=== PATIENT | female | born 1940 | race Caucasian/White ===

== ENCOUNTER 2019-04-28 07:55 | Inpatient (IN) | payer MEDICARE, BC ==
[~2019-04-28 07:55] MED LIST: Acetaminophen 325 MG Tab PO SCH; Ketorolac 15 MG/ML SDV IVPUSH PRN; Lactated Ringers 1,000 ML IV SCH; Lidocaine 1%/Sod Bicarbonate in NS 8.4% 1 ML Syringe IDERM PRN; Morphine 2 MG/ML Syringe IVPUSH PRN; Naloxone 0.4 MG/ML SDV IVPUSH PRN; Ondansetron 4 MG/2 ML SDV IVPUSH PRN; Pregabalin 25 MG Cap PO SCH; Sodium Chloride 0.9% 10 ML Syringe FLUSH PRN; oxyCODONE ER 10 MG TAB.ER PO SCH
[2019-04-28] MEDS ORDERED: Midazolam 1 MG/ML 2 ML SDV ONE (08:32)
[2019-04-28] MEDS ORDERED: Lidocaine 1% 4 ML ONE (08:32)
[2019-04-28] MEDS ORDERED: Lidocaine 1% 2 ML ONE (08:32)
[2019-04-28] MEDS ORDERED: Propofol 200 MG/20 ML SDV ONE ×3 (08:32→11:12)
[2019-04-28] MEDS ORDERED: Albuterol 0.083% 2.5 MG/3 ML Neb Soln NEB ONE (08:38)
[2019-04-28] MEDS ORDERED: Ondansetron 4 MG/2 ML SDV IVPUSH PRN (08:58)
[2019-04-28] MEDS ORDERED: diphenhydrAMINE 50 MG/ML SDV IVPUSH PRN (08:58)
[2019-04-28] MEDS ORDERED: fentaNYL 100 MCG/2 ML SDV IVPUSH PRN (08:58)
--- NOTE | 2019-04-28 09:08 | PCM.PREANE ---
Preanesthetic Assessment - Procedure Proposed Procedure: Right Total Hip replacement - Anesthesia/Transfusion/Family Hx Anesthesia History: Prior Anesthesia Without Reaction Family History of Anesthesia Reaction: No Transfusion History: No Prior Transfusion(s) Intubation History: Unknown - Review of Systems General: Other ("hacking cough" from recent URI ) Pulmonary: No Symptoms Cardiovascular: No Symptoms Gastrointestinal: No Symptoms Neurological: No Symptoms Other: Reports: None - Physical Assessment NPO Status Date: 04/27/19 NPO Status Time: 19:00 O2 Sat by Pulse Oximetry: 95 Respiratory Rate: 16 Vital Signs: Last Vital Signs Temp 36.9 C 04/28/19 08:05 Pulse 82 04/28/19 08:05 Resp 16 04/28/19 08:05 BP 157/96 H 04/28/19 08:05 Pulse Ox 94 L 04/28/19 08:38 Height: 1.6 m Weight: 78.925 kg ASA Class: 2 Mental Status: Alert & Oriented x3 Airway Class: Mallampati = 1 Dentition: Reports: [place](s) (multiple ) Thyro-Mental Finger Breadths: 3 Mouth Opening Finger Breadths: 5 ROM/Head Extension: Full Lungs: Clear to Auscultation, Normal Respiratory Effort Cardiovascular: Regular Rate, Regular Rhythm - Lab Values: Laboratory Last Values MRSA (PCR) Negative 04/15/19 09:23 Blood Type AB POSITIVE 04/28/19 08:30 - Allergies Allergies/Adverse Reactions: Allergies Allergy/AdvReac Type Severity Reaction Status Date / Time No Known Allergies Allergy Verified 04/25/19 13:35 - Blood Blood Available: Yes Product(s) Available: PRBC - Anesthesia Plan Pre-Op Medication Ordered: None - Acknowledgements Anesthesia Type Planned: Spinal Pt an Appropriate Candidate for the Planned Anesthesia: Yes Alternatives and Risks of Anesthesia Discussed w Pt/Guardian: Yes Pt/Guardian Understands and Agrees with Anesthesia Plan: Yes PreAnesthesia Questionnaire HEENT History: Reports: Epistaxis, Other (See Below) Other HEENT History: mouth ulcer, wears glasses Cardiovascular History: Reports: High Cholesterol, Hypertension Respiratory History: Reports: Other (See Below) Other Respiratory History: cough Gastrointestinal History: Reports: GERD, Hemorrhoids Genitourinary History: Reports: Other (See Below) Other Genitourinary History: urgency 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 Musculoskeletal History: Reports: Arthritis, Osteoporosis Other Musculoskeletal History: right shoulder pain Neurological History: Reports: Other (See Below) Other Neuro History: cervical radicular pain Psychiatric History: Reports: Depression Endocrine/Metabolic History: Reports: None Hematologic History: Reports: None Immunologic History: Reports: None Oncologic (Cancer) History: Reports: Bladder Dermatologic History: Reports: Other (See Below) Other Dermatologic History: actinic keratosis, atypica pigmented skin lesion, common wart, seborrheic keratosis, verruca vulgaris - Past Surgical History Head Surgeries/Procedures: Reports: None HEENT Surgical History: Reports: Cataract Surgery Cardiovascular Surgical History: Reports: None Respiratory Surgical History: Reports: None GI Surgical History: Reports: Colonoscopy Female Surgical History: Reports: Other (See Below) Other Female Surgeries/Procedures: bladder surgery x2, 2 cancerous areas removed Endocrine Surgical History: Reports: None Musculoskeletal Surgical History: Reports: None Oncologic Surgical History: Reports: None Dermatological Surgical History: Reports: None - SUBSTANCE USE Smoking Status *Q: Never Smoker Second Hand Smoke Exposure: No Days Per Week of Alcohol Use: 7 Number of Drinks Per Day: 1 Total Drinks Per Week: 7 Recreational Drug Use History: No - HOME MEDS Home Medications: Home Meds Aspirin [Halfprin] 81 mg PO DAILY 04/25/19 [History] Cholecalciferol (Vitamin D3) [Vitamin D3] 2,000 unit PO DAILY 04/25/19 [History] FLUoxetine [PROzac] 10 mg PO DAILY 04/25/19 [History] Montelukast [Singulair] 10 mg PO DAILY 04/25/19 [History] Multivitamin [Daily Multiple Vitamin] 1 tab PO DAILY 04/25/19 [History] Pantoprazole Sodium 40 mg PO DAILY 04/25/19 [History] Rosuvastatin [Crestor] 10 mg PO DAILY 04/25/19 [History] Ubidecarenone [Coq-10] 100 mg PO DAILY 04/25/19 [History] amLODIPine Besylate [Norvasc] 2.5 mg PO DAILY 04/25/19 [History] - CURRENT (IN HOUSE) MEDS Current Meds: Current Medications Acetaminophen (Tylenol) 975 mg PO NOW AMI Stop: 04/28/19 12:00 Last Admin: 04/28/19 08:35 Dose: 975 mg Aspirin (Ecotrin) 325 mg PO BID AMI Bisacodyl (Dulcolax) 5 mg PO DAILY PRN PRN Reason: Constipation Morphine Sulfate 8 mg/Epinephrine HCl 0.3 mg/Cefuroxime Sodium 750 mg/Ketorolac Tromethamine 30 mg/Sodium Chloride 27.9 ml 0 mg .XX ONETIME ONE Stop: 04/28/19 10:01 Cyclobenzaprine HCl (Flexeril) 10 mg PO BID PRN PRN Reason: Spasms Diphenhydramine HCl (Benadryl) 12.5 mg IVPUSH Q6H PRN PRN Reason: pruritis Docusate Sodium (Colace) 100 mg PO BID [facility] Fentanyl (Sublimaze) 25 mcg IVPUSH Q5M PRN PRN Reason: Pain Lactated Ringer's (Ringers, Lactated) 1,000 mls @ 125 mls/hr IV ASDIRECTED [facility] Stop: 04/28/19 23:00 Last Admin: 04/28/19 08:30 Dose: 125 mls/hr Cefazolin Sodium/Dextrose 2 gm (/ Premix) 50 mls @ 100 mls/hr IV Q8H [facility] Stop: 04/28/19 23:59 Ketorolac Tromethamine (Toradol) 15 mg IVPUSH Q6H PRN PRN Reason: Pain Lidocaine/Sodium Bicarbonate (Buffered Lidocaine 1% In Ns 8.4%) 0.25 ml IDERM ONETIME PRN PRN Reason: Prior to IV Start Stop: 04/28/19 18:00 Last Admin: 04/28/19 08:30 Dose: 0.25 ml Magnesium Hydroxide (Milk Of Magnesia) 30 ml PO BID PRN PRN Reason: Constipation Morphine Sulfate (Morphine) 2 mg IVPUSH Q2H PRN PRN Reason: Breakthrough Pain Naloxone HCl (Narcan) 0.1 mg IVPUSH Q5M PRN PRN Reason: Oversedation Ondansetron HCl (Zofran) 4 mg IVPUSH Q6H PRN PRN Reason: Nausea/Vomiting Ondansetron HCl (Zofran) 4 mg IVPUSH ONETIME PRN PRN Reason: Nausea/Vomiting Oxycodone HCl (Oxycontin) 10 mg PO ONETIME [facility] Stop: 04/28/19 12:00 Last Admin: 04/28/19 08:35 Dose: 10 mg Oxycodone/Acetaminophen (Percocet 325-5 Mg) 1 - 2 tab PO Q4H PRN PRN Reason: Pain Pregabalin (Lyrica) 50 mg PO ONETIME AMI Stop: 04/28/19 12:00 Last Admin: 04/28/19 08:35 Dose: 50 mg Senna (Senna) 8.6 mg PO BID PRN PRN Reason: Constipation Sodium Chloride (Saline Flush) 10 ml FLUSH ASDIRECTED PRN PRN Reason: Keep Vein Open Discontinued Medications Albuterol (Proventil Neb Soln) 2.5 mg NEB ONETIME ONE Stop: 04/28/19 08:39 Last Admin: 04/28/19 08:45 Dose: 2.5 mg Lidocaine HCl (Xylocaine-Mpf 1%) Confirm Administered Dose 2 mls @ as directed .ROUTE .STK-MED ONE Stop: 04/28/19 08:33 Lidocaine HCl (Xylocaine-Mpf 1%) Confirm Administered Dose 4 mls @ as directed .ROUTE .STK-MED ONE Stop: 04/28/19 08:33 Midazolam HCl (Versed 1 Mg/Ml) Confirm Administered Dose 2 mg .ROUTE .STK-MED ONE Stop: 04/28/19 08:33 Propofol (Diprivan 20 Ml) Confirm Administered Dose 200 mg .ROUTE .STK-MED ONE Stop: 04/28/19 08:33
[2019-04-28] MEDS ORDERED: ceFAZolin 1 GM Vial ONE (10:31)
[2019-04-28] MEDS ORDERED: Ondansetron 4 MG/2 ML SDV ONE (10:33)
[2019-04-28] MEDS ORDERED: ePHEDrine/Normal Saline 25 MG/5 ML Syringe ONE (10:44)
[2019-04-28] MEDS ORDERED: Phenylephrine/Normal Saline 100 MCG/ML 10 ML Syringe ONE (10:44)
--- NOTE | 2019-04-28 10:53 | PCM.CONS ---
H&P History of Present Illness - General Date of Service: 04/28/19 Admit Problem/Dx: Admission Diagnosis/Problem Admission Diagnosis/Problem Osteoarthritis of hip Source of Information: Patient, Old Records, Provider, RN Notes Reviewed History Limitations: Reports: No Limitations - History of Present Illness Initial Comments - Free Text/Narative: Lorena Adair is a 79 yo female patient of Dr. Williamson who is post-operative day 0 of right BEATRIS. Hospital medicine was consulted for post-operative medical care of the below listed chronic conditions. At this time she is resting comfortably in bed. Pain is controlled. She denies any chest pain, shortness of breath, palpitations, nausea, or vomiting. She carries a history of: OA, Osteoporosis, GERD, HTN, HLD, Depression, Urinary urgency, osteopenia, cervical radiculopathy , hx/o bladder cancer. She was never a smoker. She is a full code. Her primary care provider is Shannon Holland NP. Right Hip Pain Score (Numeric/FACES): 0 - Related Data Allergies/Adverse Reactions: Allergies Allergy/AdvReac Type Severity Reaction Status Date / Time No Known Allergies Allergy Verified 04/25/19 13:35 Home Medications: Home Meds Aspirin [Halfprin] 81 mg PO DAILY 04/25/19 [History] Cholecalciferol (Vitamin D3) [Vitamin D3] 2,000 unit PO DAILY 04/25/19 [History] FLUoxetine [PROzac] 10 mg PO DAILY 04/25/19 [History] Montelukast [Singulair] 10 mg PO DAILY 04/25/19 [History] Multivitamin [Daily Multiple Vitamin] 1 tab PO DAILY 04/25/19 [History] Pantoprazole Sodium 40 mg PO DAILY 04/25/19 [History] Rosuvastatin [Crestor] 10 mg PO DAILY 04/25/19 [History] Ubidecarenone [Coq-10] 100 mg PO DAILY 04/25/19 [History] amLODIPine Besylate [Norvasc] 2.5 mg PO DAILY 04/25/19 [History] Past Medical History HEENT History: Reports: Epistaxis, Other (See Below) Other HEENT History: mouth ulcer, wears glasses Cardiovascular History: Reports: High Cholesterol, Hypertension Respiratory History: Reports: Other (See Below) Other Respiratory History: cough Gastrointestinal History: Reports: GERD, Hemorrhoids Genitourinary History: Reports: Other (See Below) Other Genitourinary History: urgency 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 Musculoskeletal History: Reports: Arthritis, Osteoporosis Other Musculoskeletal History: right shoulder pain Neurological History: Reports: Other (See Below) Other Neuro History: cervical radicular pain Psychiatric History: Reports: Depression Endocrine/Metabolic History: Reports: None Hematologic History: Reports: None Immunologic History: Reports: None Oncologic (Cancer) History: Reports: Bladder Dermatologic History: Reports: Other (See Below) Other Dermatologic History: actinic keratosis, atypica pigmented skin lesion, common wart, seborrheic keratosis, verruca vulgaris - Past Surgical History Head Surgeries/Procedures: Reports: None HEENT Surgical History: Reports: Cataract Surgery Cardiovascular Surgical History: Reports: None Respiratory Surgical History: Reports: None GI Surgical History: Reports: Colonoscopy Female Surgical History: Reports: Other (See Below) Other Female Surgeries/Procedures: bladder surgery x2, 2 cancerous areas removed Endocrine Surgical History: Reports: None Musculoskeletal Surgical History: Reports: None Oncologic Surgical History: Reports: None Dermatological Surgical History: Reports: None Social & Family History - Tobacco Use Smoking Status *Q: Never Smoker Second Hand Smoke Exposure: No - Alcohol Use Days Per Week of Alcohol Use: 7 Number of Drinks Per Day: 1 Total Drinks Per Week: 7 - Recreational Drug Use Recreational Drug Use: No H&P Review of Systems - Review of Systems: Review Of Systems: See Below General: Reports: No Symptoms. Denies: Fever, Chills HEENT: Reports: No Symptoms. Denies: Headaches, Sore Throat Pulmonary: Reports: No Symptoms. Denies: Shortness of Breath, Wheezing, Cough, Sputum Cardiovascular: Reports: No Symptoms. Denies: Chest Pain, Palpitations, Dyspnea on Exertion Gastrointestinal: Reports: No Symptoms. Denies: Abdominal Pain, Constipation, Diarrhea, Nausea, Vomiting Genitourinary: Reports: No Symptoms. Denies: Pain Musculoskeletal: Reports: Leg Pain Skin: Reports: No Symptoms Psychiatric: Reports: No Symptoms. Denies: Confusion Neurological: Reports: No Symptoms Hematologic/Lymphatic: Reports: No Symptoms Immunologic: Reports: No Symptoms Exam - Exam Exam: See Below - Vital Signs Vital Signs: Last Vital Signs Temp 98.5 F 04/28/19 08:05 Pulse 82 04/28/19 08:05 Resp 16 04/28/19 09:08 BP 157/96 H 04/28/19 08:05 Pulse Ox 95 04/28/19 09:08 Weight: 174 lb - Exam Quality Assessment: Supplemental Oxygen, DVT Prophylaxis General: Alert, Oriented, Cooperative. No: Mild Distress HEENT: Conjunctiva Clear, EACs Clear, EOMI, Hearing Intact, Mucosa Moist & [place] , Normal Nasal Septum, Posterior Pharynx Clear, PERRLA Neck: Supple, Trachea Midline Lungs: Clear to Auscultation, Normal Respiratory Effort Cardiovascular: Regular Rate, Regular Rhythm GI/Abdominal Exam: Normal Bowel Sounds, Soft, Non-Tender, No Organomegaly, No Distention (Female) Exam: Deferred Back Exam: Normal Inspection, Full Range of Motion Extremities: No Pedal Edema, Normal Capillary Refill, Leg Pain, Limited Range of Motion, Other (Bandage in place on right leg. Bandage is dry and intact. Cooling pack in place ) Peripheral Pulses: 2+: Radial (L), Radial (R), Dorsalis Pedis (L), Dorsalis Pedis (R) Skin: Warm, Dry, Intact Neurological: Cranial Nerves Intact (Grossly ) Neuro Extensive - Mental Status: Alert, Oriented x3, Normal Mood/Affect - Patient Data Lab Results Last 24 hrs: Laboratory Results - last 24 hr 04/28/19 Range/Units 08:30 Blood Type AB POSITIVE Gel Antibody Screen Negative Consult PN Assessment/Plan POD#: 0 Procedures: Procedures ASSAY OF CREATININE (04/16/15) ASSAY OF PREALBUMIN (04/09/19) ASSAY THYROID STIM HORMONE (01/24/18) BREAST TOMOSYNTHESIS BI (02/18/19) COMPLETE CBC AUTOMATED (04/09/19) COMPLETE CBC W/AUTO DIFF WBC (08/09/18) COMPREHEN METABOLIC PANEL (04/09/19) DRAIN/INJ JOINT/BURSA W/O US (12/20/18) DXA BONE DENSITY AXIAL (02/15/18) ELECTROCARDIOGRAM TRACING (04/09/19) LIPID PANEL (01/24/18) MRI JNT OF LWR EXTRE W/O DYE (05/16/16) MRI NECK SPINE W/O DYE (04/19/18) OFFICE/OUTPATIENT VISIT EST (04/09/19) OFFICE/OUTPATIENT VISIT EST (04/12/16) PROTHROMBIN TIME (04/09/19) ROUTINE VENIPUNCTURE (04/09/19) SCR MAMMO BI INCL CAD (02/18/19) THROMBOPLASTIN TIME PARTIAL (04/09/19) URINALYSIS AUTO W/O SCOPE (12/08/16) URINALYSIS AUTO W/SCOPE (08/09/18) URINE CULTURE/COLONY COUNT (08/09/18) X-RAY EXAM CHEST 2 VIEWS (04/09/19) X-RAY EXAM OF KNEE 3 (04/12/16) (1) S/P total hip arthroplasty SNOMED Code(s): 217773871358, 166751277911 Code(s): Z96.649 - PRESENCE OF UNSPECIFIED ARTIFICIAL HIP JOINT Priority: High Current Visit: Yes Qualifiers: Laterality: right Qualified Code(s): Z96.641 - Presence of right artificial hip joint (2) Osteoporosis SNOMED Code(s): 04869776 Code(s): M81.0 - AGE-RELATED OSTEOPOROSIS W/O CURRENT PATHOLOGICAL FRACTURE Priority: High Current Visit: Yes Qualifiers: Osteoporosis type: unspecified Encounter type: initial encounter (3) Osteoarthritis SNOMED Code(s): 016965919 Code(s): M19.90 - UNSPECIFIED OSTEOARTHRITIS, UNSPECIFIED SITE Priority: High Current Visit: Yes Qualifiers: Osteoarthritis location: hip Osteoarthritis type: primary Laterality: right Qualified Code(s): M16.11 - Unilateral primary osteoarthritis, right hip (4) Cervical radiculopathy SNOMED Code(s): 87113689 Code(s): M54.12 - RADICULOPATHY, CERVICAL REGION Priority: Low Current Visit: No (5) GERD (gastroesophageal reflux disease) SNOMED Code(s): 620462480 Code(s): K21.9 - GASTRO-ESOPHAGEAL REFLUX DISEASE WITHOUT ESOPHAGITIS Priority: Low Current Visit: No Qualifiers: Esophagitis presence: esophagitis presence not specified Qualified Code(s) : K21.9 - Gastro-esophageal reflux disease without esophagitis (6) HTN (hypertension) SNOMED Code(s): 07578599 Code(s): I10 - ESSENTIAL (PRIMARY) HYPERTENSION Priority: Medium Current Visit: No Qualifiers: Hypertension type: unspecified Qualified Code(s): I10 - Essential (primary ) hypertension (7) HLD (hyperlipidemia) SNOMED Code(s): 18930681 Code(s): E78.5 - HYPERLIPIDEMIA, UNSPECIFIED Priority: Low Current Visit : No Qualifiers: Hyperlipidemia type: unspecified Qualified Code(s): E78.5 - Hyperlipidemia , unspecified (8) Depression SNOMED Code(s): 47019395 Code(s): F32.9 - MAJOR DEPRESSIVE DISORDER, SINGLE EPISODE, UNSPECIFIED Priority: Low Current Visit: No Qualifiers: Depression Type: other depression Qualified Code(s): F32.89 - Other specified depressive episodes (9) Urinary urgency Priority: Medium Current Visit: No (10) Osteopenia SNOMED Code(s): 253564963 Code(s): M85.80 - OTH DISRD OF BONE DENSITY AND STRUCTURE, UNSPECIFIED SITE Priority: Medium Current Visit: No Qualifiers: Osteopenia location: unspecified Qualified Code(s): M85.80 - Other specified disorders of bone density and structure, unspecified site (11) History of bladder cancer SNOMED Code(s): 539463692, 380277973 Code(s): Z85.51 - PERSONAL HISTORY OF MALIGNANT NEOPLASM OF BLADDER Priority: Medium Current Visit: No Problem List Initiated/Reviewed/Updated: Yes Plan: I/P: Acute: S/P right total hip arthroplasty - post-operative day 0 -DVT prophylaxis and pain management per primary care team -PT/OT -IS/RT -Monitor oxygen saturation -Titrate oxygen as needed -Home medications reviewed -Vital signs stable -Monitor labs -Pre-operative Hgb was 13.4 -Pre-operative GFR was 53 -Pre-operative sodium was 135 Osteoarthritis of right hip -Pain management per primary care team Chronic: OA Osteoporosis GERD HTN HLD Depression Urinary urgency osteopenia cervical radiculopathy Hx/o bladder cancer Plan: CM for discharge planning GI prophylaxis Home medications as indicated Other orders as listed above Routine AM labs She is a full code. Her PCP is Dr. Shannon Holland, [facility]. Thank you for allowing us to participate in the care of this patient!! Requesting Provider: Dr. Williamson Date Consult Requested: 04/28/19 Patient History Reviewed: Yes Admission H&P Reviewed: Yes Time Spent (in minutes): 35
[2019-04-28] MEDS: Iodine/Sodium Iodide 2% Tincture 30 ML Bottle ONE ×2 (11:24→11:35)
[2019-04-28] MEDS: Bupivacaine 0.25% 30 ML SDV ONE ×2 (11:25→11:44)
[2019-04-28] MEDS: ceFAZolin 1 GM Vial ONE ×2 (11:25→11:38)
[2019-04-28] MEDS: Morphine 8 MG, EPINEPHrine 0.3 MG, Cefuroxime 750 MG, Ketorolac 30 MG, Sodium Chloride ... ONE ×15 (11:26→14:17)
[2019-04-28] MEDS: Vancomycin 1 GM SDV ONE ×2 (11:27→11:45)
[2019-04-28] MEDS ORDERED: Lactated Ringers 0 ML ONE ×2 (11:48)
--- NOTE | 2019-04-28 13:29 | PCM.POSTAN ---
POST ANESTHESIA ASSESSMENT - MENTAL STATUS Mental Status: Alert, Oriented - VITAL SIGNS Pulse Rate: 88 SaO2: 92 Resp Rate: 17 Blood Pressure: 101/64 Temperature: 36.8 C - RESPIRATORY Respiratory Status: Respiratory Rate WNL, Airway Patent, O2 Saturation Stable, Supplemental Oxygen - CARDIOVASCULAR CV Status: Pulse Rate WNL, Blood Pressure Stable - GASTROINTESTINAL GI Status: No Symptoms - PAIN Pain Score: 0 - POST OP HYDRATION Hydration Status: Adequate & Stable
[2019-04-28] MEDS ORDERED: Lidocaine 1% 6 ML ONE (13:39)
[2019-04-28] MEDS ORDERED: Lactated Ringers 1,000 ML ONE ×2 (14:00→14:01)
[2019-04-28] MEDS: Montelukast 10 MG Tab PO SCH (14:23)
[2019-04-28] MEDS: FLUoxetine 10 MG Cap PO SCH (14:24)
[2019-04-28] MEDS: Pantoprazole 40 MG Tab.CR PO SCH (14:24)
--- NOTE | 2019-04-28 15:10 | CR ---
Pelvis and right hip: AP view of pelvis was obtained as well as lateral view of the right hip. Comparison: No prior pelvis or hip exam. Degenerative change is seen within the visualized lower lumbar spine. Right hip prosthesis is seen. Soft tissue air is seen around the right hip compatible with recent surgery. No acute fracture or other abnormality is seen. Impression: 1. Recently placed right hip prosthesis which appears within normal limits. 2. Degenerative change within the spine. Diagnostic code #2
--- NOTE | 2019-04-28 16:53 | PCM.OPNOTE ---
- General Post-Op/Procedure Note Date of Surgery/Procedure: 04/28/19 Operative Procedure(s): right total hip arthroplasty Pre Op Diagnosis: right hip osteoarthrosis Post-Op Diagnosis: Same Anesthesia Technique: Local, MAC, Spinal Primary Surgeon: Axel Williamson Anesthesia Provider: Nyla Shah Enrollment Counselor: Juhi Li Enrollment Counselor: Vane Powell EBL in mLs: 1,000 Complications: None Condition: Good Free Text/Narrative:: Intake & Output 04/28/19 04/28/19 04/28/19 06:59 14:59 22:59 Intake Total 150 Balance 150 size 52 cup 36 flat liner size 6 stem 0 36mm head
[2019-04-28] MEDS: ceFAZolin 2 GM in Premix Bag 1 BAG IV SCH (18:26)
[2019-04-28] MEDS: amLODIPine 2.5 MG Tab PO SCH (20:39)
[2019-04-28] MEDS: Acetaminophen/oxyCODONE 325-5 MG Tab PO PRN (20:40)
[2019-04-28] MEDS: Docusate Sodium 100 MG Cap PO SCH (20:40)
[2019-04-28] MEDS ORDERED: Sennosides 8.6 MG Tab PO PRN (21:00)
[2019-04-28] MEDS ORDERED: Cyclobenzaprine 10 MG Tab PO PRN (21:00)
[2019-04-28] MEDS ORDERED: Magnesium Hydroxide 400 MG/5 ML Susp 30 ML Cup PO PRN (21:00)
[2019-04-29] MEDS: ceFAZolin 2 GM in Premix Bag 1 BAG IV SCH ×2 (01:16→09:53)
[2019-04-29] MEDS: Acetaminophen/oxyCODONE 325-5 MG Tab PO PRN ×5 (01:17→20:41)
[2019-04-29] MEDS: Pantoprazole 40 MG Tab.CR PO SCH (05:42)
--- NOTE | 2019-04-29 06:30 | PCM.CONSN ---
- General Info Date of Service: 04/29/19 Admission Dx/Problem (Free Text): Admission Diagnosis/Problem Admission Diagnosis/Problem Osteoarthritis of hip Functional Status: Reports: Pain Controlled, Tolerating Diet, Ambulating, Urinating, Incentive Spirometry. Denies: New Symptoms - Review of Systems General: Reports: No Symptoms. Denies: Fever, Malaise HEENT: Reports: No Symptoms. Denies: Headaches, Sore Throat Pulmonary: Reports: No Symptoms. Denies: Shortness of Breath, Pleuritic Chest Pain, Cough, Sputum, Wheezing Cardiovascular: Reports: No Symptoms. Denies: Chest Pain, Palpitations, Edema Gastrointestinal: Reports: No Symptoms. Denies: Abdominal Pain, Constipation, Diarrhea, Nausea, Vomiting Genitourinary: Reports: No Symptoms. Denies: Pain Musculoskeletal: Reports: Leg Pain Skin: Reports: No Symptoms. Denies: Cyanosis Neurological: Reports: No Symptoms. Denies: Confusion, Dizziness (earlier in day but resolved now. ) Psychiatric: Reports: No Symptoms - Patient Data Vitals - Most Recent: Last Vital Signs Temp 97.9 F 04/29/19 04:05 Pulse 82 04/29/19 04:05 Resp 16 04/29/19 04:05 BP 109/56 L 04/29/19 04:05 Pulse Ox 95 04/29/19 04:05 Weight - Most Recent: 180 lb 4.8 oz I&O - Last 24 Hours: Intake & Output 04/28/19 04/28/19 04/29/19 14:59 22:59 06:59 Intake Total 150 1520 500 Output Total 0 400 Balance 150 1520 100 Lab Results Last 24 Hours: Laboratory Results - last 24 hr 04/28/19 04/28/19 04/29/19 Range/Units 06:00 08:30 05:15 WBC 5.25 (3.98-10.04) K/mm3 RBC 3.10 L (3.98-5.22) M/mm3 Hgb 10.8 L D 9.4 L (11.2-15.7) gm/L Hct 33.8 L 29.9 L (34.1-44.9) % MCV 96.5 H D (79.4-94.8) fl MCH 30.3 (25.6-32.2) pg MCHC 31.4 L (32.2-35.5) g/dl RDW Std Deviation 42.7 (36.4-46.3) fL Plt Count 165 L D (182-369) K/mm3 MPV 10.4 (9.4-12.3) fl Blood Type AB POSITIVE Gel Antibody Screen Negative Med Orders - Current: Current Medications Amlodipine Besylate (Norvasc) 2.5 mg PO BEDTIME [facility] Last Admin: 04/28/19 20:39 Dose: 2.5 mg Aspirin (Ecotrin) 325 mg PO BID [facility] Bisacodyl (Dulcolax) 5 mg PO DAILY PRN PRN Reason: Constipation Cholecalciferol (Vitamin D3) 2,000 units PO DAILY [facility] Cyclobenzaprine HCl (Flexeril) 10 mg PO BID PRN PRN Reason: Spasms Docusate Sodium (Colace) 100 mg PO BID [facility] Last Admin: 04/28/19 20:40 Dose: 100 mg Fluoxetine HCl (Prozac) 10 mg PO DAILY [facility] Last Admin: 04/28/19 14:24 Dose: 10 mg Cefazolin Sodium/Dextrose 2 gm (/ Premix) 50 mls @ 100 mls/hr IV Q8H [facility] Stop: 04/29/19 10:29 Last Admin: 04/29/19 01:16 Dose: 100 mls/hr Ketorolac Tromethamine (Toradol) 15 mg IVPUSH Q6H PRN PRN Reason: Pain Magnesium Hydroxide (Milk Of Magnesia) 30 ml PO BID PRN PRN Reason: Constipation Montelukast Sodium (Singulair) 10 mg PO DAILY [facility] Last Admin: 04/28/19 14:23 Dose: 10 mg Morphine Sulfate (Morphine) 2 mg IVPUSH Q2H PRN PRN Reason: Breakthrough Pain Multivitamins (Thera) 1 each PO DAILY [facility] Naloxone HCl (Narcan) 0.1 mg IVPUSH Q5M PRN PRN Reason: Oversedation Ondansetron HCl (Zofran) 4 mg IVPUSH Q6H PRN PRN Reason: Nausea/Vomiting Oxycodone/Acetaminophen (Percocet 325-5 Mg) 1 - 2 tab PO Q4H PRN PRN Reason: Pain Last Admin: 04/29/19 05:42 Dose: 2 tab Pantoprazole Sodium (Protonix) 40 mg PO ACBREAKFAST [facility] Last Admin: 04/29/19 05:42 Dose: 40 mg Senna (Senna) 8.6 mg PO BID PRN PRN Reason: Constipation Sodium Chloride (Saline Flush) 10 ml FLUSH ASDIRECTED PRN PRN Reason: Keep Vein Open Discontinued Medications Acetaminophen (Tylenol) 975 mg PO NOW AMI Stop: 04/28/19 12:00 Last Admin: 04/28/19 08:35 Dose: 975 mg Albuterol (Proventil Neb Soln) 2.5 mg NEB ONETIME ONE Stop: 04/28/19 08:39 Last Admin: 04/28/19 08:45 Dose: 2.5 mg Aspirin (Halfprin) 81 mg PO DAILY [facility] Bupivacaine HCl (Marcaine 0.25%) Confirm Administered Dose 30 ml .ROUTE .STK- MED ONE Stop: 04/28/19 09:04 Last Admin: 04/28/19 11:44 Dose: 30 ml Cefazolin Sodium (Ancef) Confirm Administered Dose 2 gm .ROUTE .STK-MED ONE Stop: 04/28/19 09:56 Last Admin: 04/28/19 11:38 Dose: 2 gm Cefazolin Sodium (Ancef) Confirm Administered Dose 2 gm .ROUTE .STK-MED ONE Stop: 04/28/19 10:32 Morphine Sulfate 8 mg/Epinephrine HCl 0.3 mg/Cefuroxime Sodium 750 mg/Ketorolac Tromethamine 30 mg/Sodium Chloride 27.9 ml 0 mg .XX ONETIME ONE Stop: 04/28/19 10:01 Last Admin: 04/28/19 14:17 Dose: Not Given Diphenhydramine HCl (Benadryl) 12.5 mg IVPUSH Q6H PRN PRN Reason: pruritis Stop: 04/28/19 12:00 Ephedrine Sulfate (Ephedrine In Ns) Confirm Administered Dose 25 mg .ROUTE .STK- MED ONE Stop: 04/28/19 10:45 Fentanyl (Sublimaze) 25 mcg IVPUSH Q5M PRN PRN Reason: Pain Stop: 04/28/19 12:00 Lactated Ringer's (Ringers, Lactated) 1,000 mls @ 125 mls/hr IV ASDIRECTED AMI Stop: 04/28/19 23:00 Last Admin: 04/28/19 08:30 Dose: 125 mls/hr Lidocaine HCl (Xylocaine-Mpf 1%) Confirm Administered Dose 2 mls @ as directed .ROUTE .ST-MED ONE Stop: 04/28/19 08:33 Lidocaine HCl (Xylocaine-Mpf 1%) Confirm Administered Dose 4 mls @ as directed .ROUTE .ST-MED ONE Stop: 04/28/19 08:33 Lactated Ringer's (Ringers, Lactated) Confirm Administered Dose 0 mls @ as directed .ROUTE .ST-MED ONE Stop: 04/28/19 11:49 Lactated Ringer's (Ringers, Lactated) Confirm Administered Dose 0 mls @ as directed .ROUTE .ST-MED ONE Stop: 04/28/19 11:49 Lidocaine HCl (Xylocaine-Mpf 1%) Confirm Administered Dose 6 mls @ as directed .ROUTE .[facility] ONE Stop: 04/28/19 13:40 Lactated Ringer's (Ringers, Lactated) Confirm Administered Dose 1,000 mls @ as directed .ROUTE .[facility]-MED ONE Stop: 04/28/19 14:01 Lactated Ringer's (Ringers, Lactated) Confirm Administered Dose 1,000 mls @ as directed .ROUTE .[facility]-MED ONE Stop: 04/28/19 14:02 Iodine (Iodine 2% Mild Tincture) Confirm Administered Dose 30 ml .ROUTE .ST- MED ONE Stop: 04/28/19 09:04 Last Admin: 04/28/19 11:35 Dose: 18 ml Lidocaine/Sodium Bicarbonate (Buffered Lidocaine 1% In Ns 8.4%) 0.25 ml IDERM ONETIME PRN PRN Reason: Prior to IV Start Stop: 04/28/19 18:00 Last Admin: 04/28/19 08:30 Dose: 0.25 ml Midazolam HCl (Versed 1 Mg/Ml) Confirm Administered Dose 2 mg .ROUTE .ST-MED ONE Stop: 04/28/19 08:33 Ondansetron HCl (Zofran) 4 mg IVPUSH ONETIME PRN PRN Reason: Nausea/Vomiting Stop: 04/28/19 12:00 Ondansetron HCl (Zofran) Confirm Administered Dose 4 mg .ROUTE .ST-MED ONE Stop: 04/28/19 10:34 Oxycodone HCl (Oxycontin) 10 mg PO ONETIME AMI Stop: 04/28/19 12:00 Last Admin: 04/28/19 08:35 Dose: 10 mg Phenylephrine HCl (Phenylephrine In Ns 100 Mcg/Ml) Confirm Administered Dose 1 mg .ROUTE .STK-MED ONE Stop: 04/28/19 10:45 Pregabalin (Lyrica) 50 mg PO ONETIME AMI Stop: 04/28/19 12:00 Last Admin: 04/28/19 08:35 Dose: 50 mg Propofol (Diprivan 20 Ml) Confirm Administered Dose 200 mg .ROUTE .STK-MED ONE Stop: 04/28/19 08:33 Propofol (Diprivan 20 Ml) Confirm Administered Dose 200 mg .ROUTE .STK-MED ONE Stop: 04/28/19 10:46 Propofol (Diprivan 20 Ml) Confirm Administered Dose 200 mg .ROUTE .STK-MED ONE Stop: 04/28/19 11:13 Tranexamic Acid (Cyklokapron) Confirm Administered Dose 1,000 mg .ROUTE .STK- MED ONE Stop: 04/28/19 09:04 Last Admin: 04/28/19 11:45 Dose: 1,000 mg Vancomycin HCl (Vancomycin) Confirm Administered Dose 1 gm .ROUTE .STK-MED ONE Stop: 04/28/19 09:04 Last Admin: 04/28/19 11:45 Dose: 1 gm - Exam Quality Assessment: Supplemental Oxygen, DVT Prophylaxis General: Alert, Oriented, Cooperative, No Acute Distress HEENT: Pupils Equal, Pupils Reactive, EOMI, Mucous Membr. Moist/[place] Neck: Supple Lungs: Clear to Auscultation, Normal Respiratory Effort Cardiovascular: Regular Rate, Regular Rhythm GI/Abdominal Exam: Normal Bowel Sounds, Soft, Non-Tender, No Organomegaly, No Distention (Female) Exam: Deferred Back Exam: Normal Inspection, Full Range of Motion Extremities: No Pedal Edema, Normal Capillary Refill, Leg Pain, Limited Range of Motion, Other (Bandage in place on right leg. Cooling pack in place. ) Peripheral Pulses: 2+: Radial (L), Radial (R), Dorsalis Pedis (L), Dorsalis Pedis (R) Skin: Warm, Dry, Intact Wound/Incisions: Dressing Dry and Intact, No Drainage Neurological: No New Focal Deficit Psy/Mental Status: Alert, Normal Affect, Normal Mood Consult PN Assessment/Plan POD#: 1 Procedures: Procedures ASSAY OF CREATININE (04/16/15) ASSAY OF PREALBUMIN (04/09/19) ASSAY THYROID STIM HORMONE (01/24/18) BREAST TOMOSYNTHESIS BI (02/18/19) COMPLETE CBC AUTOMATED (04/09/19) COMPLETE CBC W/AUTO DIFF WBC (08/09/18) COMPREHEN METABOLIC PANEL (04/09/19) DRAIN/INJ JOINT/BURSA W/O US (12/20/18) DXA BONE DENSITY AXIAL (02/15/18) ELECTROCARDIOGRAM TRACING (04/09/19) LIPID PANEL (01/24/18) MRI JNT OF LWR EXTRE W/O DYE (05/16/16) MRI NECK SPINE W/O DYE (04/19/18) OFFICE/OUTPATIENT VISIT EST (04/09/19) OFFICE/OUTPATIENT VISIT EST (04/12/16) PROTHROMBIN TIME (04/09/19) ROUTINE VENIPUNCTURE (04/09/19) SCR MAMMO BI INCL CAD (02/18/19) THROMBOPLASTIN TIME PARTIAL (04/09/19) URINALYSIS AUTO W/O SCOPE (12/08/16) URINALYSIS AUTO W/SCOPE (08/09/18) URINE CULTURE/COLONY COUNT (08/09/18) X-RAY EXAM CHEST 2 VIEWS (04/09/19) X-RAY EXAM OF KNEE 3 (04/12/16) (1) S/P total hip arthroplasty SNOMED Code(s): 434524481193, 108979296656 Code(s): Z96.649 - PRESENCE OF UNSPECIFIED ARTIFICIAL HIP JOINT Priority: High Current Visit: Yes Qualifiers: Laterality: right Qualified Code(s): Z96.641 - Presence of right artificial hip joint (2) Osteoporosis SNOMED Code(s): 23506038 Code(s): M81.0 - AGE-RELATED OSTEOPOROSIS W/O CURRENT PATHOLOGICAL FRACTURE Priority: High Current Visit: Yes Qualifiers: Osteoporosis type: unspecified Encounter type: initial encounter (3) Osteoarthritis SNOMED Code(s): 780124057 Code(s): M19.90 - UNSPECIFIED OSTEOARTHRITIS, UNSPECIFIED SITE Priority: High Current Visit: Yes Qualifiers: Osteoarthritis location: hip Osteoarthritis type: primary Laterality: right Qualified Code(s): M16.11 - Unilateral primary osteoarthritis, right hip (4) Cervical radiculopathy SNOMED Code(s): 60520980 Code(s): M54.12 - RADICULOPATHY, CERVICAL REGION Priority: Low Current Visit: No (5) GERD (gastroesophageal reflux disease) SNOMED Code(s): 470271921 Code(s): K21.9 - GASTRO-ESOPHAGEAL REFLUX DISEASE WITHOUT ESOPHAGITIS Priority: Low Current Visit: No Qualifiers: Esophagitis presence: esophagitis presence not specified Qualified Code(s) : K21.9 - Gastro-esophageal reflux disease without esophagitis (6) HTN (hypertension) SNOMED Code(s): 31842723 Code(s): I10 - ESSENTIAL (PRIMARY) HYPERTENSION Priority: Medium Current Visit: No Qualifiers: Hypertension type: unspecified Qualified Code(s): I10 - Essential (primary ) hypertension (7) HLD (hyperlipidemia) SNOMED Code(s): 02279502 Code(s): E78.5 - HYPERLIPIDEMIA, UNSPECIFIED Priority: Low Current Visit : No Qualifiers: Hyperlipidemia type: unspecified Qualified Code(s): E78.5 - Hyperlipidemia , unspecified (8) Depression SNOMED Code(s): 54837169 Code(s): F32.9 - MAJOR DEPRESSIVE DISORDER, SINGLE EPISODE, UNSPECIFIED Priority: Low Current Visit: No Qualifiers: Depression Type: other depression Qualified Code(s): F32.89 - Other specified depressive episodes (9) Urinary urgency Priority: Medium Current Visit: No (10) Osteopenia SNOMED Code(s): 858429045 Code(s): M85.80 - OTH DISRD OF BONE DENSITY AND STRUCTURE, UNSPECIFIED SITE Priority: Medium Current Visit: No Qualifiers: Osteopenia location: unspecified Qualified Code(s): M85.80 - Other specified disorders of bone density and structure, unspecified site (11) History of bladder cancer SNOMED Code(s): 525900280, 948558463 Code(s): Z85.51 - PERSONAL HISTORY OF MALIGNANT NEOPLASM OF BLADDER Priority: Medium Current Visit: No Problem List Initiated/Reviewed/Updated: Yes My Orders Last 24 Hours: My Active Orders 04/28/19 13:30 FLUoxetine [PROzac] 10 mg PO DAILY Montelukast [Singulair] 10 mg PO DAILY Pantoprazole [ProTONIX] 40 mg PO ACBREAKFAST 04/28/19 21:00 amLODIPine [Norvasc] 2.5 mg PO BEDTIME 04/29/19 09:00 Cholecalciferol (Vitamin D3) [Vitamin D3] 2,000 units PO DAILY Multivitamins,Therapeutic [Thera] 1 each PO DAILY Plan: I/P: Acute: S/P right total hip arthroplasty - post-operative day 1 -DVT prophylaxis and pain management per primary care team -PT/OT -IS/RT -Monitor oxygen saturation -Titrate oxygen as needed -Home medications reviewed -Vital signs stable -Monitor labs -Pre-operative Hgb was 13.4; Now 10.8-->9.4 -Pre-operative GFR was 53; Now 48 -Pre-operative sodium was 135; Now 139 Osteoarthritis of right hip -Pain management per primary care team Post-operative hypoxia -Saturations drop into 70's while sleeping off O2 with good pleth -Likely 2/2 pain medications and poor inspiration -RT/IS -Lung sounds clear, denies SOB -May need to be qualified for O2 in AM -Continue to monitor and attempt to wean Chronic: OA Osteoporosis GERD HTN HLD Depression Urinary urgency osteopenia cervical radiculopathy Hx/o bladder cancer Plan: CM for discharge planning GI prophylaxis Home medications as indicated Other orders as listed above Routine AM labs She is a full code. Her PCP is Dr. Shannon Holland, [employer]. Lorena continues to do ok. Unfortunately her oxygen saturations have remained low today, especially while sleeping. We will continue to attempt to wean tonight but she likely will not be able to discharge until morning. Otherwise she has been working with therapies and ambulating well. She has urinated and had good oral intake. No nursing or patient concerns. Thank you for allowing us to participate in the care of this patient!!
--- NOTE | 2019-04-29 07:46 | PCM48HPAN ---
Post Anesthesia Note - EVALUATION WITHIN 48HRS OF ANESTHETIC Vital Signs in Normal Range: Yes Patient Participated in Evaluation: Yes Respiratory Function Stable: Yes Airway Patent: Yes Cardiovascular Function Stable: Yes Hydration Status Stable: Yes Pain Control Satisfactory: Yes Nausea and Vomiting Control Satisfactory: Yes Mental Status Recovered: Yes
--- NOTE | 2019-04-29 07:53 | PCM.SURGPN ---
- General Info Date of Service: 04/29/19 POD#: 1 Functional Status: Reports: Pain Controlled, Tolerating Diet, Ambulating, Urinating, Incentive Spirometry, Other (The pt states she has no pain. She reports feeling dizzy earlier today and that has improved "drinking my coffee".) - Patient Data Vitals - Most Recent: Last Vital Signs Temp 97.9 F 04/29/19 04:05 Pulse 82 04/29/19 04:05 Resp 16 04/29/19 04:05 BP 109/56 L 04/29/19 04:05 Pulse Ox 95 04/29/19 04:05 Weight - Most Recent: 180 lb 4.8 oz I&O - Last 24 Hours: Intake & Output 04/28/19 04/29/19 04/29/19 22:59 06:59 14:59 Intake Total 1520 500 Output Total 0 400 Balance 1520 100 Lab Results Last 24 Hrs: Laboratory Results - last 24 hr 04/28/19 04/28/19 04/29/19 Range/Units 06:00 08:30 05:15 WBC 5.25 (3.98-10.04) K/mm3 RBC 3.10 L (3.98-5.22) M/mm3 Hgb 10.8 L D 9.4 L (11.2-15.7) gm/L Hct 33.8 L 29.9 L (34.1-44.9) % MCV 96.5 H D (79.4-94.8) fl MCH 30.3 (25.6-32.2) pg MCHC 31.4 L (32.2-35.5) g/dl RDW Std Deviation 42.7 (36.4-46.3) fL Plt Count 165 L D (182-369) K/mm3 MPV 10.4 (9.4-12.3) fl Sodium (136-145) mEq/L Potassium (3.5-5.1) mEq/L Chloride (98-107) mEq/L Carbon Dioxide (21-32) mEq/L Anion Gap (5-15) BUN (7-18) mg/dL Creatinine (0.55-1.02) mg/dL Est Cr Clr Drug Dosing mL/min Estimated GFR (MDRD) (>60) mL/min BUN/Creatinine Ratio (14-18) Glucose (83-115) mg/dL Calcium (8.5-10.1) mg/dL Total Bilirubin (0.2-1.0) mg/dL AST (15-37) U/L ALT (14-59) U/L Alkaline Phosphatase (46-116) U/L Total Protein (6.4-8.2) g/dl Albumin (3.4-5.0) g/dl Globulin gm/dL Albumin/Globulin Ratio (1-2) Blood Type AB POSITIVE Gel Antibody Screen Negative 04/29/19 Range/Units 05:15 WBC (3.98-10.04) K/mm3 RBC (3.98-5.22) M/mm3 Hgb (11.2-15.7) gm/L Hct (34.1-44.9) % MCV (79.4-94.8) fl MCH (25.6-32.2) pg MCHC (32.2-35.5) g/dl RDW Std Deviation (36.4-46.3) fL Plt Count (182-369) K/mm3 MPV (9.4-12.3) fl Sodium 139 (136-145) mEq/L Potassium 4.0 (3.5-5.1) mEq/L Chloride 103 (98-107) mEq/L Carbon Dioxide 29 (21-32) mEq/L Anion Gap 11.0 (5-15) BUN 17 (7-18) mg/dL Creatinine 1.1 H (0.55-1.02) mg/dL Est Cr Clr Drug Dosing 33.18 mL/min Estimated GFR (MDRD) 48 (>60) mL/min BUN/Creatinine Ratio 15.5 (14-18) Glucose 97 (83-115) mg/dL Calcium 8.4 L (8.5-10.1) mg/dL Total Bilirubin 0.5 (0.2-1.0) mg/dL AST 33 (15-37) U/L ALT 22 (14-59) U/L Alkaline Phosphatase 67 (46-116) U/L Total Protein 5.6 L (6.4-8.2) g/dl Albumin 2.9 L (3.4-5.0) g/dl Globulin 2.7 gm/dL Albumin/Globulin Ratio 1.1 (1-2) Blood Type Gel Antibody Screen Med Orders - Current: Current Medications Amlodipine Besylate (Norvasc) 2.5 mg PO BEDTIME [facility] Last Admin: 04/28/19 20:39 Dose: 2.5 mg Aspirin (Ecotrin) 325 mg PO BID [facility] Bisacodyl (Dulcolax) 5 mg PO DAILY PRN PRN Reason: Constipation Cholecalciferol (Vitamin D3) 2,000 units PO DAILY [facility] Cyclobenzaprine HCl (Flexeril) 10 mg PO BID PRN PRN Reason: Spasms Docusate Sodium (Colace) 100 mg PO BID [facility] Last Admin: 04/28/19 20:40 Dose: 100 mg Fluoxetine HCl (Prozac) 10 mg PO DAILY [facility] Last Admin: 04/28/19 14:24 Dose: 10 mg Cefazolin Sodium/Dextrose 2 gm (/ Premix) 50 mls @ 100 mls/hr IV Q8H [facility] Stop: 04/29/19 10:29 Last Admin: 04/29/19 01:16 Dose: 100 mls/hr Ketorolac Tromethamine (Toradol) 15 mg IVPUSH Q6H PRN PRN Reason: Pain Magnesium Hydroxide (Milk Of Magnesia) 30 ml PO BID PRN PRN Reason: Constipation Montelukast Sodium (Singulair) 10 mg PO DAILY [facility] Last Admin: 04/28/19 14:23 Dose: 10 mg Morphine Sulfate (Morphine) 2 mg IVPUSH Q2H PRN PRN Reason: Breakthrough Pain Multivitamins (Thera) 1 each PO DAILY [facility] Naloxone HCl (Narcan) 0.1 mg IVPUSH Q5M PRN PRN Reason: Oversedation Ondansetron HCl (Zofran) 4 mg IVPUSH Q6H PRN PRN Reason: Nausea/Vomiting Oxycodone/Acetaminophen (Percocet 325-5 Mg) 1 - 2 tab PO Q4H PRN PRN Reason: Pain Last Admin: 04/29/19 05:42 Dose: 2 tab Pantoprazole Sodium (Protonix) 40 mg PO ACBREAKFAST [facility] Last Admin: 04/29/19 05:42 Dose: 40 mg Senna (Senna) 8.6 mg PO BID PRN PRN Reason: Constipation Sodium Chloride (Saline Flush) 10 ml FLUSH ASDIRECTED PRN PRN Reason: Keep Vein Open Discontinued Medications Acetaminophen (Tylenol) 975 mg PO NOW [facility] Stop: 04/28/19 12:00 Last Admin: 04/28/19 08:35 Dose: 975 mg Albuterol (Proventil Neb Soln) 2.5 mg NEB ONETIME ONE Stop: 04/28/19 08:39 Last Admin: 04/28/19 08:45 Dose: 2.5 mg Aspirin (Halfprin) 81 mg PO DAILY [facility] Bupivacaine HCl (Marcaine 0.25%) Confirm Administered Dose 30 ml .ROUTE .STK- MED ONE Stop: 04/28/19 09:04 Last Admin: 04/28/19 11:44 Dose: 30 ml Cefazolin Sodium (Ancef) Confirm Administered Dose 2 gm .ROUTE .STK-MED ONE Stop: 04/28/19 09:56 Last Admin: 04/28/19 11:38 Dose: 2 gm Cefazolin Sodium (Ancef) Confirm Administered Dose 2 gm .ROUTE .STK-MED ONE Stop: 04/28/19 10:32 Morphine Sulfate 8 mg/Epinephrine HCl 0.3 mg/Cefuroxime Sodium 750 mg/Ketorolac Tromethamine 30 mg/Sodium Chloride 27.9 ml 0 mg .XX ONETIME ONE Stop: 04/28/19 10:01 Last Admin: 04/28/19 14:17 Dose: Not Given Diphenhydramine HCl (Benadryl) 12.5 mg IVPUSH Q6H PRN PRN Reason: pruritis Stop: 04/28/19 12:00 Ephedrine Sulfate (Ephedrine In Ns) Confirm Administered Dose 25 mg .ROUTE .STK- MED ONE Stop: 04/28/19 10:45 Fentanyl (Sublimaze) 25 mcg IVPUSH Q5M PRN PRN Reason: Pain Stop: 04/28/19 12:00 Lactated Ringer's (Ringers, Lactated) 1,000 mls @ 125 mls/hr IV ASDIRECTED [facility] Stop: 04/28/19 23:00 Last Admin: 04/28/19 08:30 Dose: 125 mls/hr Lidocaine HCl (Xylocaine-Mpf 1%) Confirm Administered Dose 2 mls @ as directed .ROUTE .STK-MED ONE Stop: 04/28/19 08:33 Lidocaine HCl (Xylocaine-Mpf 1%) Confirm Administered Dose 4 mls @ as directed .ROUTE .STK-MED ONE Stop: 04/28/19 08:33 Lactated Ringer's (Ringers, Lactated) Confirm Administered Dose 0 mls @ as directed .ROUTE .[facility] ONE Stop: 04/28/19 11:49 Lactated Ringer's (Ringers, Lactated) Confirm Administered Dose 0 mls @ as directed .ROUTE .[facility] ONE Stop: 04/28/19 11:49 Lidocaine HCl (Xylocaine-Mpf 1%) Confirm Administered Dose 6 mls @ as directed .ROUTE .[facility] ONE Stop: 04/28/19 13:40 Lactated Ringer's (Ringers, Lactated) Confirm Administered Dose 1,000 mls @ as directed .ROUTE .[facility] ONE Stop: 04/28/19 14:01 Lactated Ringer's (Ringers, Lactated) Confirm Administered Dose 1,000 mls @ as directed .ROUTE .[facility] ONE Stop: 04/28/19 14:02 Iodine (Iodine 2% Mild Tincture) Confirm Administered Dose 30 ml .ROUTE .[facility] ONE Stop: 04/28/19 09:04 Last Admin: 04/28/19 11:35 Dose: 18 ml Lidocaine/Sodium Bicarbonate (Buffered Lidocaine 1% In Ns 8.4%) 0.25 ml IDERM ONETIME PRN PRN Reason: Prior to IV Start Stop: 04/28/19 18:00 Last Admin: 04/28/19 08:30 Dose: 0.25 ml Midazolam HCl (Versed 1 Mg/Ml) Confirm Administered Dose 2 mg .ROUTE .[facility] ONE Stop: 04/28/19 08:33 Ondansetron HCl (Zofran) 4 mg IVPUSH ONETIME PRN PRN Reason: Nausea/Vomiting Stop: 04/28/19 12:00 Ondansetron HCl (Zofran) Confirm Administered Dose 4 mg .ROUTE .[facility] ONE Stop: 04/28/19 10:34 Oxycodone HCl (Oxycontin) 10 mg PO ONETIME [facility] Stop: 04/28/19 12:00 Last Admin: 04/28/19 08:35 Dose: 10 mg Phenylephrine HCl (Phenylephrine In Ns 100 Mcg/Ml) Confirm Administered Dose 1 mg .ROUTE .[facility] ONE Stop: 04/28/19 10:45 Pregabalin (Lyrica) 50 mg PO ONETIME [facility] Stop: 04/28/19 12:00 Last Admin: 04/28/19 08:35 Dose: 50 mg Propofol (Diprivan 20 Ml) Confirm Administered Dose 200 mg .ROUTE .STK-MED ONE Stop: 04/28/19 08:33 Propofol (Diprivan 20 Ml) Confirm Administered Dose 200 mg .ROUTE .STK-MED ONE Stop: 04/28/19 10:46 Propofol (Diprivan 20 Ml) Confirm Administered Dose 200 mg .ROUTE .STK-MED ONE Stop: 04/28/19 11:13 Tranexamic Acid (Cyklokapron) Confirm Administered Dose 1,000 mg .ROUTE .STK- MED ONE Stop: 04/28/19 09:04 Last Admin: 04/28/19 11:45 Dose: 1,000 mg Vancomycin HCl (Vancomycin) Confirm Administered Dose 1 gm .ROUTE .STK-MED ONE Stop: 04/28/19 09:04 Last Admin: 04/28/19 11:45 Dose: 1 gm - Exam Wound/Incisions: Dressing Dry and Intact General: Alert, Cooperative, No Acute Distress Lungs: Normal Respiratory Effort Extremities: Other (NVS intact for BLE. Kate's negative. Right thigh soft.) - Problem List Review Problem List Initiated/Reviewed/Updated: Yes - My Orders Last 24 Hours: Active Orders 24 hr Category Date Time Status Communication Order [RC] ASDIRECTED Care 04/29/19 07:50 Ordered Cooling Warming Measures [RC] ASDIRECTED Care 04/28/19 08:58 Inactive Notify Provider [RC] ASDIRECTED Care 04/28/19 08:58 Active Ready for Discharge [RC] PER UNIT ROUTINE Care 04/29/19 07:50 Ordered Regular Diet [DIET] Diet 04/28/19 Lunch Active Acetaminophen/oxyCODONE [Percocet 325-5 MG] Med 04/28/19 07:25 Active 1 - 2 tab PO Q4H PRN Aspirin [Ecotrin] Med 04/29/19 09:00 Active 325 mg PO BID Bisacodyl [Dulcolax] Med 04/29/19 09:00 Active 5 mg PO DAILY PRN Cholecalciferol (Vitamin D3) [Vitamin D3] Med 04/29/19 09:00 Active 2,000 units PO DAILY Cyclobenzaprine [Flexeril] Med 04/28/19 21:00 Active 10 mg PO BID PRN Docusate Sodium [Colace] Med 04/28/19 21:00 Active 100 mg PO BID FLUoxetine [PROzac] Med 04/28/19 13:30 Active 10 mg PO DAILY Ketorolac [Toradol] Med 04/28/19 07:25 Active 15 mg IVPUSH Q6H PRN Magnesium Hydroxide [Milk of Magnesia] Med 04/28/19 21:00 Active 30 ml PO BID PRN Montelukast [Singulair] Med 04/28/19 13:30 Active 10 mg PO DAILY Multivitamins,Therapeutic [Thera] Med 04/29/19 09:00 Active 1 each PO DAILY Pantoprazole [ProTONIX] Med 04/28/19 13:30 Active 40 mg PO ACBREAKFAST Sennosides [Senna] Med 04/28/19 21:00 Active 8.6 mg PO BID PRN Sodium Chloride 0.9% [Saline Flush] Med 04/28/19 07:00 Active 10 ml FLUSH ASDIRECTED PRN amLODIPine [Norvasc] Med 04/28/19 21:00 Active 2.5 mg PO BEDTIME ceFAZolin [Ancef] 2 gm Med 04/28/19 18:00 Active Premix Bag 1 bag IV Q8H Medication Administration Instruction [OM.PC] Routine Oth 04/28/19 07:00 Ordered Medication Orders Amlodipine Besylate (Norvasc) 2.5 mg PO BEDTIME [facility] Last Admin: 04/28/19 20:39 Dose: 2.5 mg Aspirin (Ecotrin) 325 mg PO BID [facility] Bisacodyl (Dulcolax) 5 mg PO DAILY PRN PRN Reason: Constipation Cholecalciferol (Vitamin D3) 2,000 units PO DAILY [facility] Cyclobenzaprine HCl (Flexeril) 10 mg PO BID PRN PRN Reason: Spasms Docusate Sodium (Colace) 100 mg PO BID [facility] Last Admin: 04/28/19 20:40 Dose: 100 mg Fluoxetine HCl (Prozac) 10 mg PO DAILY [facility] Last Admin: 04/28/19 14:24 Dose: 10 mg Cefazolin Sodium/Dextrose 2 gm (/ Premix) 50 mls @ 100 mls/hr IV Q8H [facility] Stop: 04/29/19 10:29 Last Admin: 04/29/19 01:16 Dose: 100 mls/hr Infusion: 04/28/19 18:56 Dose: 100 mls/hr Admin: 04/28/19 18:26 Dose: 100 mls/hr Ketorolac Tromethamine (Toradol) 15 mg IVPUSH Q6H PRN PRN Reason: Pain Magnesium Hydroxide (Milk Of Magnesia) 30 ml PO BID PRN PRN Reason: Constipation Montelukast Sodium (Singulair) 10 mg PO DAILY [facility] Last Admin: 04/28/19 14:23 Dose: 10 mg Morphine Sulfate (Morphine) 2 mg IVPUSH Q2H PRN PRN Reason: Breakthrough Pain Multivitamins (Thera) 1 each PO DAILY [facility] Naloxone HCl (Narcan) 0.1 mg IVPUSH Q5M PRN PRN Reason: Oversedation Ondansetron HCl (Zofran) 4 mg IVPUSH Q6H PRN PRN Reason: Nausea/Vomiting Oxycodone/Acetaminophen (Percocet 325-5 Mg) 1 - 2 tab PO Q4H PRN PRN Reason: Pain Last Admin: 04/29/19 05:42 Dose: 2 tab Admin: 04/29/19 01:17 Dose: 2 tab Admin: 04/28/19 20:40 Dose: 2 tab Pantoprazole Sodium (Protonix) 40 mg PO ACBREAKFAST [facility] Last Admin: 04/29/19 05:42 Dose: 40 mg Admin: 04/28/19 14:24 Dose: 40 mg Senna (Senna) 8.6 mg PO BID PRN PRN Reason: Constipation Sodium Chloride (Saline Flush) 10 ml FLUSH ASDIRECTED PRN PRN Reason: Keep Vein Open - Assessment Assessment (Free Text/Narrative):: POD#1 - right BEATRIS - Plan Plan (Free Text/Narrative):: 1. Hgb 9.4 today. 2. 325mg ASA PO BID. Frequent mobility, TEDs. 3. Outpatient therapy. 4. Will d/c to home today if inpt therapy goals met and if cleared by Hospitalist service. The pt's case was discussed with Dr. Williamson.
[2019-04-29] MEDS ORDERED: Bisacodyl 5 MG Tab PO PRN (09:00)
[2019-04-29] MEDS ORDERED: Aspirin 81 MG Tab.EC PO SCH (09:00)
[2019-04-29] MEDS: Cholecalciferol (Vitamin D3) 1,000 Unit Tab PO SCH (09:53)
[2019-04-29] MEDS: Docusate Sodium 100 MG Cap PO SCH ×2 (09:53→20:41)
[2019-04-29] MEDS: Montelukast 10 MG Tab PO SCH (09:54)
[2019-04-29] MEDS: FLUoxetine 10 MG Cap PO SCH (09:54)
[2019-04-29] MEDS: Multivitamins,Therapeutic Tab PO SCH (09:54)
[2019-04-29] MEDS: Aspirin 325 MG Tab.EC PO SCH ×2 (09:54→20:41)
[2019-04-29] MEDS: amLODIPine 2.5 MG Tab PO SCH (20:41)
[2019-04-30] MEDS: Pantoprazole 40 MG Tab.CR PO SCH (05:46)
[2019-04-30] MEDS: Acetaminophen/oxyCODONE 325-5 MG Tab PO PRN (05:46)
--- NOTE | 2019-04-30 06:28 | PCM.CONSN ---
- General Info Date of Service: 04/30/19 Admission Dx/Problem (Free Text): Admission Diagnosis/Problem Admission Diagnosis/Problem Osteoarthritis of hip Functional Status: Reports: Pain Controlled, Tolerating Diet, Ambulating, Urinating, Incentive Spirometry. Denies: New Symptoms - Review of Systems General: Reports: No Symptoms. Denies: Fever, Weakness, Fatigue, Chills HEENT: Reports: No Symptoms. Denies: Headaches, Sore Throat Pulmonary: Reports: No Symptoms. Denies: Shortness of Breath, Cough, Sputum, Wheezing Cardiovascular: Reports: No Symptoms. Denies: Chest Pain, Palpitations, Edema Gastrointestinal: Reports: No Symptoms. Denies: Abdominal Pain, Constipation, Diarrhea, Nausea, Vomiting Genitourinary: Reports: No Symptoms. Denies: Pain Musculoskeletal: Reports: Leg Pain Skin: Reports: No Symptoms. Denies: Cyanosis Neurological: Reports: No Symptoms. Denies: Confusion, Pre-Existing Deficit Psychiatric: Reports: No Symptoms - Patient Data Vitals - Most Recent: Last Vital Signs Temp 97.9 F 04/30/19 05:45 Pulse 99 04/30/19 05:45 Resp 18 04/30/19 05:45 BP 119/63 04/30/19 05:45 Pulse Ox 94 L 04/30/19 05:45 Weight - Most Recent: 182 lb 5 oz I&O - Last 24 Hours: Intake & Output 04/29/19 04/29/19 04/30/19 14:59 22:59 06:59 Intake Total 1130 400 Output Total 800 700 Balance 330 -300 Lab Results Last 24 Hours: Laboratory Results - last 24 hr 04/29/19 04/30/19 Range/Units 05:15 05:52 WBC 6.18 (3.98-10.04) K/mm3 RBC 3.02 L (3.98-5.22) M/mm3 Hgb 9.2 L (11.2-15.7) gm/L Hct 29.0 L (34.1-44.9) % MCV 96.0 H (79.4-94.8) fl MCH 30.5 (25.6-32.2) pg MCHC 31.7 L (32.2-35.5) g/dl RDW Std Deviation 41.9 (36.4-46.3) fL Plt Count 158 L (182-369) K/mm3 MPV 10.5 (9.4-12.3) fl Neut % (Auto) 73.6 H (34.0-71.1) % Lymph % (Auto) 16.3 L (19.3-51.7) % [place] % (Auto) 7.8 (4.7-12.5) % Eos % (Auto) 1.9 (0.7-5.8) Baso % (Auto) 0.2 (0.1-1.2) % Neut # (Auto) 4.55 (1.56-6.13) K/mm3 Lymph # (Auto) 1.01 L (1.18-3.74) K/mm3 [place] # (Auto) 0.48 H (0.24-0.36) K/mm3 Eos # (Auto) 0.12 (0.04-0.36) K/mm3 Baso # (Auto) 0.01 (0.01-0.08) K/mm3 Sodium 139 (136-145) mEq/L Potassium 4.0 (3.5-5.1) mEq/L Chloride 103 (98-107) mEq/L Carbon Dioxide 29 (21-32) mEq/L Anion Gap 11.0 (5-15) BUN 17 (7-18) mg/dL Creatinine 1.1 H (0.55-1.02) mg/dL Est Cr Clr Drug Dosing 33.18 mL/min Estimated GFR (MDRD) 48 (>60) mL/min BUN/Creatinine Ratio 15.5 (14-18) Glucose 97 (83-115) mg/dL Calcium 8.4 L (8.5-10.1) mg/dL Total Bilirubin 0.5 (0.2-1.0) mg/dL AST 33 (15-37) U/L ALT 22 (14-59) U/L Alkaline Phosphatase 67 (46-116) U/L Total Protein 5.6 L (6.4-8.2) g/dl Albumin 2.9 L (3.4-5.0) g/dl Globulin 2.7 gm/dL Albumin/Globulin Ratio 1.1 (1-2) Med Orders - Current: Current Medications Amlodipine Besylate (Norvasc) 2.5 mg PO BEDTIME AMI Last Admin: 04/29/19 20:41 Dose: 2.5 mg Aspirin (Ecotrin) 325 mg PO BID [facility] Last Admin: 04/29/19 20:41 Dose: 325 mg Bisacodyl (Dulcolax) 5 mg PO DAILY PRN PRN Reason: Constipation Cholecalciferol (Vitamin D3) 2,000 units PO DAILY [facility] Last Admin: 04/29/19 09:53 Dose: 2,000 units Cyclobenzaprine HCl (Flexeril) 10 mg PO BID PRN PRN Reason: Spasms Docusate Sodium (Colace) 100 mg PO BID [facility] Last Admin: 04/29/19 20:41 Dose: 100 mg Fluoxetine HCl (Prozac) 10 mg PO DAILY [facility] Last Admin: 04/29/19 09:54 Dose: 10 mg Ketorolac Tromethamine (Toradol) 15 mg IVPUSH Q6H PRN PRN Reason: Pain Magnesium Hydroxide (Milk Of Magnesia) 30 ml PO BID PRN PRN Reason: Constipation Montelukast Sodium (Singulair) 10 mg PO DAILY [facility] Last Admin: 04/29/19 09:54 Dose: 10 mg Morphine Sulfate (Morphine) 2 mg IVPUSH Q2H PRN PRN Reason: Breakthrough Pain Multivitamins (Thera) 1 each PO DAILY [facility] Last Admin: 04/29/19 09:54 Dose: 1 each Naloxone HCl (Narcan) 0.1 mg IVPUSH Q5M PRN PRN Reason: Oversedation Ondansetron HCl (Zofran) 4 mg IVPUSH Q6H PRN PRN Reason: Nausea/Vomiting Oxycodone/Acetaminophen (Percocet 325-5 Mg) 1 - 2 tab PO Q4H PRN PRN Reason: Pain Last Admin: 04/30/19 05:46 Dose: 2 tab Pantoprazole Sodium (Protonix) 40 mg PO ACBREAKFAST [facility] Last Admin: 04/30/19 05:46 Dose: 40 mg Senna (Senna) 8.6 mg PO BID PRN PRN Reason: Constipation Sodium Chloride (Saline Flush) 10 ml FLUSH ASDIRECTED PRN PRN Reason: Keep Vein Open Discontinued Medications Acetaminophen (Tylenol) 975 mg PO NOW [facility] Stop: 04/28/19 12:00 Last Admin: 04/28/19 08:35 Dose: 975 mg Albuterol (Proventil Neb Soln) 2.5 mg NEB ONETIME ONE Stop: 04/28/19 08:39 Last Admin: 04/28/19 08:45 Dose: 2.5 mg Aspirin (Halfprin) 81 mg PO DAILY [facility] Bupivacaine HCl (Marcaine 0.25%) Confirm Administered Dose 30 ml .ROUTE .STK- MED ONE Stop: 04/28/19 09:04 Last Admin: 04/28/19 11:44 Dose: 30 ml Cefazolin Sodium (Ancef) Confirm Administered Dose 2 gm .ROUTE .STK-MED ONE Stop: 04/28/19 09:56 Last Admin: 04/28/19 11:38 Dose: 2 gm Cefazolin Sodium (Ancef) Confirm Administered Dose 2 gm .ROUTE .STK-MED ONE Stop: 04/28/19 10:32 Morphine Sulfate 8 mg/Epinephrine HCl 0.3 mg/Cefuroxime Sodium 750 mg/Ketorolac Tromethamine 30 mg/Sodium Chloride 27.9 ml 0 mg .XX ONETIME ONE Stop: 04/28/19 10:01 Last Admin: 04/28/19 14:17 Dose: Not Given Diphenhydramine HCl (Benadryl) 12.5 mg IVPUSH Q6H PRN PRN Reason: pruritis Stop: 04/28/19 12:00 Ephedrine Sulfate (Ephedrine In Ns) Confirm Administered Dose 25 mg .ROUTE .STK- MED ONE Stop: 04/28/19 10:45 Fentanyl (Sublimaze) 25 mcg IVPUSH Q5M PRN PRN Reason: Pain Stop: 04/28/19 12:00 Lactated Ringer's (Ringers, Lactated) 1,000 mls @ 125 mls/hr IV ASDIRECTED [facility] Stop: 04/28/19 23:00 Last Admin: 04/28/19 08:30 Dose: 125 mls/hr Cefazolin Sodium/Dextrose 2 gm (/ Premix) 50 mls @ 100 mls/hr IV Q8H [facility] Stop: 04/29/19 10:29 Last Admin: 04/29/19 09:53 Dose: 100 mls/hr Lidocaine HCl (Xylocaine-Mpf 1%) Confirm Administered Dose 2 mls @ as directed .ROUTE .STK-MED ONE Stop: 04/28/19 08:33 Lidocaine HCl (Xylocaine-Mpf 1%) Confirm Administered Dose 4 mls @ as directed .ROUTE .STK-MED ONE Stop: 04/28/19 08:33 Lactated Ringer's (Ringers, Lactated) Confirm Administered Dose 0 mls @ as directed .ROUTE .STK-MED ONE Stop: 04/28/19 11:49 Lactated Ringer's (Ringers, Lactated) Confirm Administered Dose 0 mls @ as directed .ROUTE .STK-MED ONE Stop: 04/28/19 11:49 Lidocaine HCl (Xylocaine-Mpf 1%) Confirm Administered Dose 6 mls @ as directed .ROUTE .STK-MED ONE Stop: 04/28/19 13:40 Lactated Ringer's (Ringers, Lactated) Confirm Administered Dose 1,000 mls @ as directed .ROUTE .STK-MED ONE Stop: 04/28/19 14:01 Lactated Ringer's (Ringers, Lactated) Confirm Administered Dose 1,000 mls @ as directed .ROUTE .ST-MED ONE Stop: 04/28/19 14:02 Iodine (Iodine 2% Mild Tincture) Confirm Administered Dose 30 ml .ROUTE .STK- MED ONE Stop: 04/28/19 09:04 Last Admin: 04/28/19 11:35 Dose: 18 ml Lidocaine/Sodium Bicarbonate (Buffered Lidocaine 1% In Ns 8.4%) 0.25 ml IDERM ONETIME PRN PRN Reason: Prior to IV Start Stop: 04/28/19 18:00 Last Admin: 04/28/19 08:30 Dose: 0.25 ml Midazolam HCl (Versed 1 Mg/Ml) Confirm Administered Dose 2 mg .ROUTE .STK-MED ONE Stop: 04/28/19 08:33 Ondansetron HCl (Zofran) 4 mg IVPUSH ONETIME PRN PRN Reason: Nausea/Vomiting Stop: 04/28/19 12:00 Ondansetron HCl (Zofran) Confirm Administered Dose 4 mg .ROUTE .STK-MED ONE Stop: 04/28/19 10:34 Oxycodone HCl (Oxycontin) 10 mg PO ONETIME AMI Stop: 04/28/19 12:00 Last Admin: 04/28/19 08:35 Dose: 10 mg Phenylephrine HCl (Phenylephrine In Ns 100 Mcg/Ml) Confirm Administered Dose 1 mg .ROUTE .STK-MED ONE Stop: 04/28/19 10:45 Pregabalin (Lyrica) 50 mg PO ONETIME AMI Stop: 04/28/19 12:00 Last Admin: 04/28/19 08:35 Dose: 50 mg Propofol (Diprivan 20 Ml) Confirm Administered Dose 200 mg .ROUTE .STK-MED ONE Stop: 04/28/19 08:33 Propofol (Diprivan 20 Ml) Confirm Administered Dose 200 mg .ROUTE .STK-MED ONE Stop: 04/28/19 10:46 Propofol (Diprivan 20 Ml) Confirm Administered Dose 200 mg .ROUTE .STK-MED ONE Stop: 04/28/19 11:13 Tranexamic Acid (Cyklokapron) Confirm Administered Dose 1,000 mg .ROUTE .STK- MED ONE Stop: 04/28/19 09:04 Last Admin: 04/28/19 11:45 Dose: 1,000 mg Vancomycin HCl (Vancomycin) Confirm Administered Dose 1 gm .ROUTE .STK-MED ONE Stop: 04/28/19 09:04 Last Admin: 04/28/19 11:45 Dose: 1 gm - Exam Quality Assessment: Supplemental Oxygen, DVT Prophylaxis General: Alert, Oriented, Cooperative, No Acute Distress HEENT: Pupils Equal, Pupils Reactive, EOMI, Mucous Membr. Moist/[place] Neck: Supple, Trachea Midline Lungs: Clear to Auscultation, Normal Respiratory Effort Cardiovascular: Regular Rate, Regular Rhythm GI/Abdominal Exam: Normal Bowel Sounds, Soft, Non-Tender, No Distention, No Abnormal Bruit (Female) Exam: Deferred Back Exam: Normal Inspection, Full Range of Motion Extremities: No Pedal Edema, Normal Capillary Refill, Leg Pain, Limited Range of Motion, Other (Bandage in place on right side. Cooling pack in place. ) Peripheral Pulses: 2+: Radial (L), Radial (R), Dorsalis Pedis (L), Dorsalis Pedis (R) Skin: Warm, Dry, Intact Wound/Incisions: Dressing Dry and Intact, No Drainage Neurological: No New Focal Deficit Psy/Mental Status: Alert, Normal Affect, Normal Mood Consult PN Assessment/Plan POD#: 2 () Procedures: Procedures ASSAY OF CREATININE (04/16/15) ASSAY OF PREALBUMIN (04/09/19) ASSAY THYROID STIM HORMONE (01/24/18) BREAST TOMOSYNTHESIS BI (02/18/19) COMPLETE CBC AUTOMATED (04/09/19) COMPLETE CBC W/AUTO DIFF WBC (08/09/18) COMPREHEN METABOLIC PANEL (04/09/19) DRAIN/INJ JOINT/BURSA W/O US (12/20/18) DXA BONE DENSITY AXIAL (02/15/18) ELECTROCARDIOGRAM TRACING (04/09/19) LIPID PANEL (01/24/18) MRI JNT OF LWR EXTRE W/O DYE (05/16/16) MRI NECK SPINE W/O DYE (04/19/18) OFFICE/OUTPATIENT VISIT EST (04/09/19) OFFICE/OUTPATIENT VISIT EST (04/12/16) PROTHROMBIN TIME (04/09/19) ROUTINE VENIPUNCTURE (04/09/19) SCR MAMMO BI INCL CAD (02/18/19) THROMBOPLASTIN TIME PARTIAL (04/09/19) URINALYSIS AUTO W/O SCOPE (12/08/16) URINALYSIS AUTO W/SCOPE (08/09/18) URINE CULTURE/COLONY COUNT (08/09/18) X-RAY EXAM CHEST 2 VIEWS (04/09/19) X-RAY EXAM OF KNEE 3 (04/12/16) (1) S/P total hip arthroplasty SNOMED Code(s): 616931228297, 901340344059 Code(s): Z96.649 - PRESENCE OF UNSPECIFIED ARTIFICIAL HIP JOINT Priority: High Current Visit: Yes Qualifiers: Laterality: right Qualified Code(s): Z96.641 - Presence of right artificial hip joint (2) Osteoporosis SNOMED Code(s): 54843917 Code(s): M81.0 - AGE-RELATED OSTEOPOROSIS W/O CURRENT PATHOLOGICAL FRACTURE Priority: High Current Visit: Yes Qualifiers: Osteoporosis type: unspecified Encounter type: initial encounter (3) Osteoarthritis SNOMED Code(s): 708584412 Code(s): M19.90 - UNSPECIFIED OSTEOARTHRITIS, UNSPECIFIED SITE Priority: High Current Visit: Yes Qualifiers: Osteoarthritis location: hip Osteoarthritis type: primary Laterality: right Qualified Code(s): M16.11 - Unilateral primary osteoarthritis, right hip (4) Cervical radiculopathy SNOMED Code(s): 05568595 Code(s): M54.12 - RADICULOPATHY, CERVICAL REGION Priority: Low Current Visit: No (5) GERD (gastroesophageal reflux disease) SNOMED Code(s): 562953582 Code(s): K21.9 - GASTRO-ESOPHAGEAL REFLUX DISEASE WITHOUT ESOPHAGITIS Priority: Low Current Visit: No Qualifiers: Esophagitis presence: esophagitis presence not specified Qualified Code(s) : K21.9 - Gastro-esophageal reflux disease without esophagitis (6) HTN (hypertension) SNOMED Code(s): 58543486 Code(s): I10 - ESSENTIAL (PRIMARY) HYPERTENSION Priority: Medium Current Visit: No Qualifiers: Hypertension type: unspecified Qualified Code(s): I10 - Essential (primary ) hypertension (7) HLD (hyperlipidemia) SNOMED Code(s): 52910528 Code(s): E78.5 - HYPERLIPIDEMIA, UNSPECIFIED Priority: Low Current Visit : No Qualifiers: Hyperlipidemia type: unspecified Qualified Code(s): E78.5 - Hyperlipidemia , unspecified (8) Depression SNOMED Code(s): 32106716 Code(s): F32.9 - MAJOR DEPRESSIVE DISORDER, SINGLE EPISODE, UNSPECIFIED Priority: Low Current Visit: No Qualifiers: Depression Type: other depression Qualified Code(s): F32.89 - Other specified depressive episodes (9) Urinary urgency Priority: Medium Current Visit: No (10) Osteopenia SNOMED Code(s): 017486720 Code(s): M85.80 - OTH DISRD OF BONE DENSITY AND STRUCTURE, UNSPECIFIED SITE Priority: Medium Current Visit: No Qualifiers: Osteopenia location: unspecified Qualified Code(s): M85.80 - Other specified disorders of bone density and structure, unspecified site (11) History of bladder cancer SNOMED Code(s): 025382931, 895323578 Code(s): Z85.51 - PERSONAL HISTORY OF MALIGNANT NEOPLASM OF BLADDER Priority: Medium Current Visit: No Problem List Initiated/Reviewed/Updated: Yes My Orders Last 24 Hours: My Active Orders 04/29/19 09:00 Cholecalciferol (Vitamin D3) [Vitamin D3] 2,000 units PO DAILY Multivitamins,Therapeutic [Thera] 1 each PO DAILY 04/30/19 05:52 BASIC METABOLIC PANEL,BMP [CHEM] AM MAGNESIUM [CHEM] AM 05/01/19 05:11 BASIC METABOLIC PANEL,BMP [CHEM] AM CBC WITH AUTO DIFF [HEME] AM MAGNESIUM [CHEM] AM 05/02/19 05:11 BASIC METABOLIC PANEL,BMP [CHEM] AM CBC WITH AUTO DIFF [HEME] AM MAGNESIUM [CHEM] AM 05/03/19 05:11 BASIC METABOLIC PANEL,BMP [CHEM] AM CBC WITH AUTO DIFF [HEME] AM MAGNESIUM [CHEM] AM Plan: I/P: Acute: S/P right total hip arthroplasty - post-operative day 2 -DVT prophylaxis and pain management per primary care team -PT/OT -IS/RT -Monitor oxygen saturation -Titrate oxygen as needed -Home medications reviewed -Vital signs stable -Monitor labs -Pre-operative Hgb was 13.4; Now 10.8-->9.4-->9.2 -Pre-operative GFR was 53; Now 48 -Pre-operative sodium was 135; Now 139 Osteoarthritis of right hip -Pain management per primary care team Post-operative hypoxia -Saturations drop into 70's while sleeping off O2 with good pleth -Likely 2/2 pain medications and poor inspiration -RT/IS -Lung sounds clear, denies SOB -Qualify for O2 -CXR obtained -Continue to monitor and attempt to wean Chronic: OA Osteoporosis GERD HTN HLD Depression Urinary urgency osteopenia cervical radiculopathy Hx/o bladder cancer Plan: CM for discharge planning GI prophylaxis Home medications as indicated Other orders as listed above Routine AM labs She is a full code. Her PCP is Shannon Holland NP. From a hospitalist standpoint Lorena continues to do pretty well. She has remained ambulatory and continues to work with PT/OT. She has been using her IS and RT has been involved with her stay. She continues to require oxygen. CXR has been obtained and was stable from prior x-ray and CT scan. She has not had any infectious symptoms. Labs and vital signs remain stable. She was noted to have a 1000mL blood loss during surgery however her hgb has remained stable. She was started on folic acid and will be discharged on this as well for 5 days. She has been qualified for oxygen by RT with 1L continuous and 2L with activity. She will be discharged on oxygen. She continues to eat well and void. No nursing or patient concerns. She will be cleared for discharge pending primary team and PT/OT agreement. Thank you for allowing us to participate in the care of this patient!!
--- NOTE | 2019-04-30 08:00 | PCM.SURGPN ---
- General Info Date of Service: 04/30/19 POD#: 2 Functional Status: Reports: Pain Controlled, Tolerating Diet, Ambulating, Urinating, Incentive Spirometry, Other (The pt states she is doing well. The pt 's daughter states her mother is doing well.) - Patient Data Vitals - Most Recent: Last Vital Signs Temp 98.8 F 04/30/19 07:17 Pulse 96 04/30/19 07:17 Resp 18 04/30/19 07:17 BP 106/54 L 04/30/19 07:17 Pulse Ox 89 L 04/30/19 07:17 Weight - Most Recent: 182 lb 5 oz I&O - Last 24 Hours: Intake & Output 04/29/19 04/30/19 04/30/19 22:59 06:59 14:59 Intake Total 1490 400 Output Total 800 700 Balance 690 -300 Lab Results Last 24 Hrs: Laboratory Results - last 24 hr 04/30/19 04/30/19 Range/Units 05:52 05:52 WBC 6.18 (3.98-10.04) K/mm3 RBC 3.02 L (3.98-5.22) M/mm3 Hgb 9.2 L (11.2-15.7) gm/L Hct 29.0 L (34.1-44.9) % MCV 96.0 H (79.4-94.8) fl MCH 30.5 (25.6-32.2) pg MCHC 31.7 L (32.2-35.5) g/dl RDW Std Deviation 41.9 (36.4-46.3) fL Plt Count 158 L (182-369) K/mm3 MPV 10.5 (9.4-12.3) fl Neut % (Auto) 73.6 H (34.0-71.1) % Lymph % (Auto) 16.3 L (19.3-51.7) % [place] % (Auto) 7.8 (4.7-12.5) % Eos % (Auto) 1.9 (0.7-5.8) Baso % (Auto) 0.2 (0.1-1.2) % Neut # (Auto) 4.55 (1.56-6.13) K/mm3 Lymph # (Auto) 1.01 L (1.18-3.74) K/mm3 [place]on # (Auto) 0.48 H (0.24-0.36) K/mm3 Eos # (Auto) 0.12 (0.04-0.36) K/mm3 Baso # (Auto) 0.01 (0.01-0.08) K/mm3 Sodium 136 (136-145) mEq/L Potassium 4.1 (3.5-5.1) mEq/L Chloride 102 (98-107) mEq/L Carbon Dioxide 29 (21-32) mEq/L Anion Gap 9.1 (5-15) BUN 15 (7-18) mg/dL Creatinine 0.9 (0.55-1.02) mg/dL Est Cr Clr Drug Dosing 40.55 mL/min Estimated GFR (MDRD) > 60 (>60) mL/min BUN/Creatinine Ratio 16.7 (14-18) Glucose 103 (83-115) mg/dL Calcium 8.6 (8.5-10.1) mg/dL Magnesium 1.8 (1.8-2.4) mg/dl Med Orders - Current: Current Medications Amlodipine Besylate (Norvasc) 2.5 mg PO BEDTIME [facility] Last Admin: 04/29/19 20:41 Dose: 2.5 mg Aspirin (Ecotrin) 325 mg PO BID [facility] Last Admin: 04/29/19 20:41 Dose: 325 mg Bisacodyl (Dulcolax) 5 mg PO DAILY PRN PRN Reason: Constipation Cholecalciferol (Vitamin D3) 2,000 units PO DAILY [facility] Last Admin: 04/29/19 09:53 Dose: 2,000 units Cyclobenzaprine HCl (Flexeril) 10 mg PO BID PRN PRN Reason: Spasms Docusate Sodium (Colace) 100 mg PO BID [facility] Last Admin: 04/29/19 20:41 Dose: 100 mg Fluoxetine HCl (Prozac) 10 mg PO DAILY [facility] Last Admin: 04/29/19 09:54 Dose: 10 mg Folic Acid (Folic Acid) 1 mg PO DAILY [facility] Ketorolac Tromethamine (Toradol) 15 mg IVPUSH Q6H PRN PRN Reason: Pain Magnesium Hydroxide (Milk Of Magnesia) 30 ml PO BID PRN PRN Reason: Constipation Montelukast Sodium (Singulair) 10 mg PO DAILY [facility] Last Admin: 04/29/19 09:54 Dose: 10 mg Morphine Sulfate (Morphine) 2 mg IVPUSH Q2H PRN PRN Reason: Breakthrough Pain Multivitamins (Thera) 1 each PO DAILY [facility] Last Admin: 04/29/19 09:54 Dose: 1 each Naloxone HCl (Narcan) 0.1 mg IVPUSH Q5M PRN PRN Reason: Oversedation Ondansetron HCl (Zofran) 4 mg IVPUSH Q6H PRN PRN Reason: Nausea/Vomiting Oxycodone/Acetaminophen (Percocet 325-5 Mg) 1 - 2 tab PO Q4H PRN PRN Reason: Pain Last Admin: 04/30/19 05:46 Dose: 2 tab Pantoprazole Sodium (Protonix) 40 mg PO ACBREAKFAST [facility] Last Admin: 04/30/19 05:46 Dose: 40 mg Senna (Senna) 8.6 mg PO BID PRN PRN Reason: Constipation Sodium Chloride (Saline Flush) 10 ml FLUSH ASDIRECTED PRN PRN Reason: Keep Vein Open Discontinued Medications Acetaminophen (Tylenol) 975 mg PO NOW [facility] Stop: 04/28/19 12:00 Last Admin: 04/28/19 08:35 Dose: 975 mg Albuterol (Proventil Neb Soln) 2.5 mg NEB ONETIME ONE Stop: 04/28/19 08:39 Last Admin: 04/28/19 08:45 Dose: 2.5 mg Aspirin (Halfprin) 81 mg PO DAILY [facility] Bupivacaine HCl (Marcaine 0.25%) Confirm Administered Dose 30 ml .ROUTE .STK- MED ONE Stop: 04/28/19 09:04 Last Admin: 04/28/19 11:44 Dose: 30 ml Cefazolin Sodium (Ancef) Confirm Administered Dose 2 gm .ROUTE .STK-MED ONE Stop: 04/28/19 09:56 Last Admin: 04/28/19 11:38 Dose: 2 gm Cefazolin Sodium (Ancef) Confirm Administered Dose 2 gm .ROUTE .STK-MED ONE Stop: 04/28/19 10:32 Morphine Sulfate 8 mg/Epinephrine HCl 0.3 mg/Cefuroxime Sodium 750 mg/Ketorolac Tromethamine 30 mg/Sodium Chloride 27.9 ml 0 mg .XX ONETIME ONE Stop: 04/28/19 10:01 Last Admin: 04/28/19 14:17 Dose: Not Given Diphenhydramine HCl (Benadryl) 12.5 mg IVPUSH Q6H PRN PRN Reason: pruritis Stop: 04/28/19 12:00 Ephedrine Sulfate (Ephedrine In Ns) Confirm Administered Dose 25 mg .ROUTE .STK- MED ONE Stop: 04/28/19 10:45 Fentanyl (Sublimaze) 25 mcg IVPUSH Q5M PRN PRN Reason: Pain Stop: 04/28/19 12:00 Lactated Ringer's (Ringers, Lactated) 1,000 mls @ 125 mls/hr IV ASDIRECTED [facility] Stop: 04/28/19 23:00 Last Admin: 04/28/19 08:30 Dose: 125 mls/hr Cefazolin Sodium/Dextrose 2 gm (/ Premix) 50 mls @ 100 mls/hr IV Q8H [facility] Stop: 04/29/19 10:29 Last Admin: 04/29/19 09:53 Dose: 100 mls/hr Lidocaine HCl (Xylocaine-Mpf 1%) Confirm Administered Dose 2 mls @ as directed .ROUTE .STK-MED ONE Stop: 04/28/19 08:33 Lidocaine HCl (Xylocaine-Mpf 1%) Confirm Administered Dose 4 mls @ as directed .ROUTE .STK-MED ONE Stop: 04/28/19 08:33 Lactated Ringer's (Ringers, Lactated) Confirm Administered Dose 0 mls @ as directed .ROUTE .STK-MED ONE Stop: 04/28/19 11:49 Lactated Ringer's (Ringers, Lactated) Confirm Administered Dose 0 mls @ as directed .ROUTE .STK-MED ONE Stop: 04/28/19 11:49 Lidocaine HCl (Xylocaine-Mpf 1%) Confirm Administered Dose 6 mls @ as directed .ROUTE .STK-MED ONE Stop: 04/28/19 13:40 Lactated Ringer's (Ringers, Lactated) Confirm Administered Dose 1,000 mls @ as directed .ROUTE .STK-MED ONE Stop: 04/28/19 14:01 Lactated Ringer's (Ringers, Lactated) Confirm Administered Dose 1,000 mls @ as directed .ROUTE .STK-MED ONE Stop: 04/28/19 14:02 Iodine (Iodine 2% Mild Tincture) Confirm Administered Dose 30 ml .ROUTE .STK- MED ONE Stop: 04/28/19 09:04 Last Admin: 04/28/19 11:35 Dose: 18 ml Lidocaine/Sodium Bicarbonate (Buffered Lidocaine 1% In Ns 8.4%) 0.25 ml IDERM ONETIME PRN PRN Reason: Prior to IV Start Stop: 04/28/19 18:00 Last Admin: 04/28/19 08:30 Dose: 0.25 ml Midazolam HCl (Versed 1 Mg/Ml) Confirm Administered Dose 2 mg .ROUTE .STK-MED ONE Stop: 04/28/19 08:33 Ondansetron HCl (Zofran) 4 mg IVPUSH ONETIME PRN PRN Reason: Nausea/Vomiting Stop: 04/28/19 12:00 Ondansetron HCl (Zofran) Confirm Administered Dose 4 mg .ROUTE .STK-MED ONE Stop: 04/28/19 10:34 Oxycodone HCl (Oxycontin) 10 mg PO ONETIME [facility] Stop: 04/28/19 12:00 Last Admin: 04/28/19 08:35 Dose: 10 mg Phenylephrine HCl (Phenylephrine In Ns 100 Mcg/Ml) Confirm Administered Dose 1 mg .ROUTE .STK-MED ONE Stop: 04/28/19 10:45 Pregabalin (Lyrica) 50 mg PO ONETIME [facility] Stop: 04/28/19 12:00 Last Admin: 04/28/19 08:35 Dose: 50 mg Propofol (Diprivan 20 Ml) Confirm Administered Dose 200 mg .ROUTE .STK-MED ONE Stop: 04/28/19 08:33 Propofol (Diprivan 20 Ml) Confirm Administered Dose 200 mg .ROUTE .STK-MED ONE Stop: 04/28/19 10:46 Propofol (Diprivan 20 Ml) Confirm Administered Dose 200 mg .ROUTE .STK-MED ONE Stop: 04/28/19 11:13 Tranexamic Acid (Cyklokapron) Confirm Administered Dose 1,000 mg .ROUTE .STK- MED ONE Stop: 04/28/19 09:04 Last Admin: 04/28/19 11:45 Dose: 1,000 mg Vancomycin HCl (Vancomycin) Confirm Administered Dose 1 gm .ROUTE .STK-MED ONE Stop: 04/28/19 09:04 Last Admin: 04/28/19 11:45 Dose: 1 gm - Exam Wound/Incisions: Dressing Dry and Intact General: Alert, Cooperative, No Acute Distress Lungs: Normal Respiratory Effort Extremities: Other (NVS intact for RLE. Kate's negative. Right quad soft, nontender.) - Problem List Review Problem List Initiated/Reviewed/Updated: Yes - My Orders Last 24 Hours: Active Orders 24 hr Category Date Time Status Communication Order [RC] ASDIRECTED Care 04/29/19 07:50 Active RT Evaluate for Home Oxygen [RC] Click to Edit Care 04/30/19 06:43 Active Ready for Discharge [RC] PER UNIT ROUTINE Care 04/29/19 07:50 Inactive Ready for Discharge [RC] PER UNIT ROUTINE Care 04/30/19 07:55 Ordered CXR [Chest 2V] [CR] Routine Exams 04/30/19 07:30 Ordered BASIC METABOLIC PANEL,BMP [CHEM] AM Lab 05/01/19 05:11 Ordered BASIC METABOLIC PANEL,BMP [CHEM] AM Lab 05/02/19 05:11 Ordered BASIC METABOLIC PANEL,BMP [CHEM] AM Lab 05/03/19 05:11 Ordered CBC WITH AUTO DIFF [HEME] AM Lab 05/01/19 05:11 Ordered CBC WITH AUTO DIFF [HEME] AM Lab 05/02/19 05:11 Ordered CBC WITH AUTO DIFF [HEME] AM Lab 05/03/19 05:11 Ordered MAGNESIUM [CHEM] AM Lab 05/01/19 05:11 Ordered MAGNESIUM [CHEM] AM Lab 05/02/19 05:11 Ordered MAGNESIUM [CHEM] AM Lab 05/03/19 05:11 Ordered Aspirin [Ecotrin] Med 04/29/19 09:00 Active 325 mg PO BID Bisacodyl [Dulcolax] Med 04/29/19 09:00 Active 5 mg PO DAILY PRN Cholecalciferol (Vitamin D3) [Vitamin D3] Med 04/29/19 09:00 Active 2,000 units PO DAILY Folic Acid Med 04/30/19 09:00 Active 1 mg PO DAILY Multivitamins,Therapeutic [Thera] Med 04/29/19 09:00 Active 1 each PO DAILY Medication Orders Amlodipine Besylate (Norvasc) 2.5 mg PO BEDTIME [facility] Last Admin: 04/29/19 20:41 Dose: 2.5 mg Admin: 04/28/19 20:39 Dose: 2.5 mg Aspirin (Ecotrin) 325 mg PO BID [facility] Last Admin: 04/29/19 20:41 Dose: 325 mg Admin: 04/29/19 09:54 Dose: 325 mg Bisacodyl (Dulcolax) 5 mg PO DAILY PRN PRN Reason: Constipation Cholecalciferol (Vitamin D3) 2,000 units PO DAILY [facility] Last Admin: 04/29/19 09:53 Dose: 2,000 units Cyclobenzaprine HCl (Flexeril) 10 mg PO BID PRN PRN Reason: Spasms Docusate Sodium (Colace) 100 mg PO BID [facility] Last Admin: 04/29/19 20:41 Dose: 100 mg Admin: 04/29/19 09:53 Dose: 100 mg Admin: 04/28/19 20:40 Dose: 100 mg Fluoxetine HCl (Prozac) 10 mg PO DAILY [facility] Last Admin: 04/29/19 09:54 Dose: 10 mg Admin: 04/28/19 14:24 Dose: 10 mg Folic Acid (Folic Acid) 1 mg PO DAILY [facility] Ketorolac Tromethamine (Toradol) 15 mg IVPUSH Q6H PRN PRN Reason: Pain Magnesium Hydroxide (Milk Of Magnesia) 30 ml PO BID PRN PRN Reason: Constipation Montelukast Sodium (Singulair) 10 mg PO DAILY [facility] Last Admin: 04/29/19 09:54 Dose: 10 mg Admin: 04/28/19 14:23 Dose: 10 mg Morphine Sulfate (Morphine) 2 mg IVPUSH Q2H PRN PRN Reason: Breakthrough Pain Multivitamins (Thera) 1 each PO DAILY [facility] Last Admin: 04/29/19 09:54 Dose: 1 each Naloxone HCl (Narcan) 0.1 mg IVPUSH Q5M PRN PRN Reason: Oversedation Ondansetron HCl (Zofran) 4 mg IVPUSH Q6H PRN PRN Reason: Nausea/Vomiting Oxycodone/Acetaminophen (Percocet 325-5 Mg) 1 - 2 tab PO Q4H PRN PRN Reason: Pain Last Admin: 04/30/19 05:46 Dose: 2 tab Admin: 04/29/19 20:41 Dose: 2 tab Admin: 04/29/19 16:05 Dose: 2 tab Admin: 04/29/19 09:53 Dose: 2 tab Admin: 04/29/19 05:42 Dose: 2 tab Admin: 04/29/19 01:17 Dose: 2 tab Admin: 04/28/19 20:40 Dose: 2 tab Pantoprazole Sodium (Protonix) 40 mg PO ACBREAKFAST [facility] Last Admin: 04/30/19 05:46 Dose: 40 mg Admin: 04/29/19 05:42 Dose: 40 mg Admin: 04/28/19 14:24 Dose: 40 mg Senna (Senna) 8.6 mg PO BID PRN PRN Reason: Constipation Sodium Chloride (Saline Flush) 10 ml FLUSH ASDIRECTED PRN PRN Reason: Keep Vein Open - Assessment Assessment (Free Text/Narrative):: POD#2 - right BEATRIS - Plan Plan (Free Text/Narrative):: 1. Hgb 9.2 today. 2. 325mg ASA PO BID, frequent mobility, TEDs. 3. Discharge to home today. The pt remained in Hospital overnight due to need for O2 use. Hospitalist service will provide orders for O2. 4. Follow-up with PCP and ortho Clinic next week. The pt's case was discussed with Dr. Williamson.
--- NOTE | 2019-04-30 08:02 | PCM.DCSUM1 ---
Discharge Summary - Hospital Course Brief History: Lorena is an 79 yo female who underwent right BEATRIS with Dr. Williamson on 04-28-2019. The procedure was completed under spinal anesthesia with MAC. The pt tolerated the procedure well and was admitted to the Medical-Surgical Unit. Medical management was provided by the Hospitalist service. The pt's Hospital course was remarkable need for use of O2 beyond POD#1. The pt remained in Hospital until POD#2 for O2 use. The pt's Hgb on POD#1 was 9.4 and was 9.2 on POD#2. On POD#1, 325mg ASA BID was initiated for VTE prophylaxis. SCDs and TEDs were also ordered. A Mepilex dressing was placed at the incision site at the time of surgery and remained clean and dry. The pt participated in P.T. and O.T. and progressed well. She followed the BEATRIS precautions. The pt was allowed to WBAT. On POD#2, the pt was deemed appropriate to discharge to home with her family. Diagnosis: Stroke: No - Discharge Data Discharge Date: 04/30/19 Discharge Disposition: Home, Self-Care 01 Condition: Good - Patient Summary/Data Operative Procedure(s) Performed: right total hip arthroplasty Consults: Consultations 04/28/19 06:34 OT Evaluation and Treatment [CONS] Routine PT Evaluation and Treatment [CONS] Routine 04/28/19 06:36 Consult to Physician [CONS] Routine - Patient Instructions Diet: Usual Diet as Tolerated Activity: Apply Ice, As Tolerated, Elevate Extremity, Full Weight Bearing Activity, Other: Follow the total hip precautions. Driving: Do Not Drive Showering/Bathing: May Shower Wound/Incision Care: Keep Operative Site/Wound Site Clean and Dry, Do NOT Change Dressing Notify Provider of: Fever, Increased Pain, Swelling and Redness, Drainage, Nausea and/or Vomiting Other/Special Instructions: Please get up and moving around EVERY HOUR while awake. This helps to prevent blood clots. Please use your walker and have help with mobility as needed. Take a short walk in your home every hour while awake. Please take 325mg aspirin TWICE daily. The aspirin is being used for blood clot prevention and not for pain management so please do not miss a dose of the medication. You do NOT need to use an 81mg aspirin while using the 325mg aspirin twice daily. You could use a medication like Zantac or Pepcid and a medication like Prilosec or Nexium to protect your stomach while you are using the aspirin. At home, please complete the exercises that you learned during the Hospital stay. Schedule for physical therapy. Use the pain medication as needed. The medication may cause drowsiness and constipation. Contact your primary care provider for instructions if you are constipated. You may use a stool softener like docusate sodium or Colace 100mg twice daily and/or a laxative like Miralax daily for constipation. Increase your water and fiber intake while you are using the pain medication. Discontinue use of the pain medication as soon as able. Please do not use other medications that may cause drowsiness (other pain medications, anxiety pills, cold medications, sleeping pills, etc) while using the prescription pain medication. Do not use alcohol while using the pain medication. You may use acetaminophen or Tylenol for pain management, however, please ensure you are not using over 4000 mg or 4 grams of acetaminophen per day from all sources. Your pain medication has 325mg of acetaminophen per tablet. At this time, please do not use ibuprofen ( Motrin, Advil) or naproxen (Aleve) for pain management as you are using the aspirin. When the aspirin course is completed in 4 to 6 weeks, you could use ibuprofen or naproxen for pain management (if this is allowed by your primary care provider). Wear the ROMI hose during the day and you may remove these at night. Elevate the limb to decrease swelling. Place ice to the area often. Place a towel between your skin and the blue pad. Use the incentive spirometer often. Take deep breaths throughout the day. Please keep the dressing in place until follow-up. Notify the Clinic if the dressing becomes saturated. Increase your protein intake while you are healing. If you have diabetes, please closely monitor your blood sugars and notify your primary care provider with abnormal values. Elevated blood sugars increases the risk of infection. Call the Clinic with questions or concerns - [phone]. Follow-up with primary care provider, Shannon Holland NP within 3-5 days of discharge regarding home oxygen. - Discharge Plan *PRESCRIPTION DRUG MONITORING PROGRAM REVIEWED*: No *COPY OF PRESCRIPTION DRUG MONITORING REPORT IN PATIENT XIOMARA: No Prescriptions/Med Rec: Acetaminophen/oxyCODONE [Percocet 325-5 MG] 1 - 2 tab PO Q4H PRN #60 tablet PRN Reason: Pain Aspirin [Ecotrin EC] 325 mg PO BID #84 tab.ec Home Medications: Home Meds Cholecalciferol (Vitamin D3) [Vitamin D3] 2,000 unit PO DAILY 04/25/19 [History] FLUoxetine [PROzac] 10 mg PO DAILY 04/25/19 [History] Montelukast [Singulair] 10 mg PO DAILY 04/25/19 [History] Multivitamin [Daily Multiple Vitamin] 1 tab PO DAILY 04/25/19 [History] Pantoprazole Sodium 40 mg PO DAILY 04/25/19 [History] Rosuvastatin [Crestor] 10 mg PO DAILY 04/25/19 [History] Ubidecarenone [Coq-10] 100 mg PO DAILY 04/25/19 [History] amLODIPine Besylate [Norvasc] 2.5 mg PO DAILY 04/25/19 [History] Acetaminophen/oxyCODONE [Percocet 325-5 MG] 1 - 2 tab PO Q4H PRN #60 tablet 03/14 [Rx] Aspirin [Ecotrin EC] 325 mg PO BID #84 tab.ec 04/29/19 [Rx] Bisacodyl [Dulcolax] 5 mg PO DAILY PRN tablet 04/29/19 [Rx] Docusate Sodium [Colace] 100 mg PO BID cap 04/29/19 [Rx] Sennosides [Senna] 8.6 mg PO BID PRN tablet 04/29/19 [Rx] Patient Handouts: Total Hip Replacement, [id number], Total Hip Replacement, Care After, [id number] Referrals: Juhi Li PA-C [Physician Oracle Analyst] - - Discharge Summary/Plan Comment DC Time >30 min.: No - Patient Data Vitals - Most Recent: Last Vital Signs Temp 98.8 F 04/30/19 07:17 Pulse 96 04/30/19 07:17 Resp 18 04/30/19 07:17 BP 106/54 L 04/30/19 07:17 Pulse Ox 89 L 04/30/19 07:17 Weight - Most Recent: 182 lb 5 oz I&O - Last 24 hours: Intake & Output 04/29/19 04/30/19 04/30/19 22:59 06:59 14:59 Intake Total 1490 400 Output Total 800 700 Balance 690 -300 Lab Results - Last 24 hrs: Laboratory Results - last 24 hr 04/30/19 04/30/19 Range/Units 05:52 05:52 WBC 6.18 (3.98-10.04) K/mm3 RBC 3.02 L (3.98-5.22) M/mm3 Hgb 9.2 L (11.2-15.7) gm/L Hct 29.0 L (34.1-44.9) % MCV 96.0 H (79.4-94.8) fl MCH 30.5 (25.6-32.2) pg MCHC 31.7 L (32.2-35.5) g/dl RDW Std Deviation 41.9 (36.4-46.3) fL Plt Count 158 L (182-369) K/mm3 MPV 10.5 (9.4-12.3) fl Neut % (Auto) 73.6 H (34.0-71.1) % Lymph % (Auto) 16.3 L (19.3-51.7) % [place] % (Auto) 7.8 (4.7-12.5) % Eos % (Auto) 1.9 (0.7-5.8) Baso % (Auto) 0.2 (0.1-1.2) % Neut # (Auto) 4.55 (1.56-6.13) K/mm3 Lymph # (Auto) 1.01 L (1.18-3.74) K/mm3 [place] # (Auto) 0.48 H (0.24-0.36) K/mm3 Eos # (Auto) 0.12 (0.04-0.36) K/mm3 Baso # (Auto) 0.01 (0.01-0.08) K/mm3 Sodium 136 (136-145) mEq/L Potassium 4.1 (3.5-5.1) mEq/L Chloride 102 (98-107) mEq/L Carbon Dioxide 29 (21-32) mEq/L Anion Gap 9.1 (5-15) BUN 15 (7-18) mg/dL Creatinine 0.9 (0.55-1.02) mg/dL Est Cr Clr Drug Dosing 40.55 mL/min Estimated GFR (MDRD) > 60 (>60) mL/min BUN/Creatinine Ratio 16.7 (14-18) Glucose 103 (83-115) mg/dL Calcium 8.6 (8.5-10.1) mg/dL Magnesium 1.8 (1.8-2.4) mg/dl Med Orders - Current: Current Medications Amlodipine Besylate (Norvasc) 2.5 mg PO BEDTIME [facility] Last Admin: 04/29/19 20:41 Dose: 2.5 mg Aspirin (Ecotrin) 325 mg PO BID [facility] Last Admin: 04/29/19 20:41 Dose: 325 mg Bisacodyl (Dulcolax) 5 mg PO DAILY PRN PRN Reason: Constipation Cholecalciferol (Vitamin D3) 2,000 units PO DAILY [facility] Last Admin: 04/29/19 09:53 Dose: 2,000 units Cyclobenzaprine HCl (Flexeril) 10 mg PO BID PRN PRN Reason: Spasms Docusate Sodium (Colace) 100 mg PO BID [facility] Last Admin: 04/29/19 20:41 Dose: 100 mg Fluoxetine HCl (Prozac) 10 mg PO DAILY [facility] Last Admin: 04/29/19 09:54 Dose: 10 mg Folic Acid (Folic Acid) 1 mg PO DAILY [facility] Ketorolac Tromethamine (Toradol) 15 mg IVPUSH Q6H PRN PRN Reason: Pain Magnesium Hydroxide (Milk Of Magnesia) 30 ml PO BID PRN PRN Reason: Constipation Montelukast Sodium (Singulair) 10 mg PO DAILY [facility] Last Admin: 04/29/19 09:54 Dose: 10 mg Morphine Sulfate (Morphine) 2 mg IVPUSH Q2H PRN PRN Reason: Breakthrough Pain Multivitamins (Thera) 1 each PO DAILY [facility] Last Admin: 04/29/19 09:54 Dose: 1 each Naloxone HCl (Narcan) 0.1 mg IVPUSH Q5M PRN PRN Reason: Oversedation Ondansetron HCl (Zofran) 4 mg IVPUSH Q6H PRN PRN Reason: Nausea/Vomiting Oxycodone/Acetaminophen (Percocet 325-5 Mg) 1 - 2 tab PO Q4H PRN PRN Reason: Pain Last Admin: 04/30/19 05:46 Dose: 2 tab Pantoprazole Sodium (Protonix) 40 mg PO ACBREAKFAST [facility] Last Admin: 04/30/19 05:46 Dose: 40 mg Senna (Senna) 8.6 mg PO BID PRN PRN Reason: Constipation Sodium Chloride (Saline Flush) 10 ml FLUSH ASDIRECTED PRN PRN Reason: Keep Vein Open Discontinued Medications Acetaminophen (Tylenol) 975 mg PO NOW AMI Stop: 04/28/19 12:00 Last Admin: 04/28/19 08:35 Dose: 975 mg Albuterol (Proventil Neb Soln) 2.5 mg NEB ONETIME ONE Stop: 04/28/19 08:39 Last Admin: 04/28/19 08:45 Dose: 2.5 mg Aspirin (Halfprin) 81 mg PO DAILY [facility] Bupivacaine HCl (Marcaine 0.25%) Confirm Administered Dose 30 ml .ROUTE .STK- MED ONE Stop: 04/28/19 09:04 Last Admin: 04/28/19 11:44 Dose: 30 ml Cefazolin Sodium (Ancef) Confirm Administered Dose 2 gm .ROUTE .STK-MED ONE Stop: 04/28/19 09:56 Last Admin: 04/28/19 11:38 Dose: 2 gm Cefazolin Sodium (Ancef) Confirm Administered Dose 2 gm .ROUTE .STK-MED ONE Stop: 04/28/19 10:32 Morphine Sulfate 8 mg/Epinephrine HCl 0.3 mg/Cefuroxime Sodium 750 mg/Ketorolac Tromethamine 30 mg/Sodium Chloride 27.9 ml 0 mg .XX ONETIME ONE Stop: 04/28/19 10:01 Last Admin: 04/28/19 14:17 Dose: Not Given Diphenhydramine HCl (Benadryl) 12.5 mg IVPUSH Q6H PRN PRN Reason: pruritis Stop: 04/28/19 12:00 Ephedrine Sulfate (Ephedrine In Ns) Confirm Administered Dose 25 mg .ROUTE .STK- MED ONE Stop: 04/28/19 10:45 Fentanyl (Sublimaze) 25 mcg IVPUSH Q5M PRN PRN Reason: Pain Stop: 04/28/19 12:00 Lactated Ringer's (Ringers, Lactated) 1,000 mls @ 125 mls/hr IV ASDIRECTED AMI Stop: 04/28/19 23:00 Last Admin: 04/28/19 08:30 Dose: 125 mls/hr Cefazolin Sodium/Dextrose 2 gm (/ Premix) 50 mls @ 100 mls/hr IV Q8H AMI Stop: 04/29/19 10:29 Last Admin: 04/29/19 09:53 Dose: 100 mls/hr Lidocaine HCl (Xylocaine-Mpf 1%) Confirm Administered Dose 2 mls @ as directed .ROUTE .ST-MED ONE Stop: 04/28/19 08:33 Lidocaine HCl (Xylocaine-Mpf 1%) Confirm Administered Dose 4 mls @ as directed .ROUTE .ST-MED ONE Stop: 04/28/19 08:33 Lactated Ringer's (Ringers, Lactated) Confirm Administered Dose 0 mls @ as directed .ROUTE .ST-MED ONE Stop: 04/28/19 11:49 Lactated Ringer's (Ringers, Lactated) Confirm Administered Dose 0 mls @ as directed .ROUTE .ST-MED ONE Stop: 04/28/19 11:49 Lidocaine HCl (Xylocaine-Mpf 1%) Confirm Administered Dose 6 mls @ as directed .ROUTE .[facility] ONE Stop: 04/28/19 13:40 Lactated Ringer's (Ringers, Lactated) Confirm Administered Dose 1,000 mls @ as directed .ROUTE .ST-MED ONE Stop: 04/28/19 14:01 Lactated Ringer's (Ringers, Lactated) Confirm Administered Dose 1,000 mls @ as directed .ROUTE .ST-MED ONE Stop: 04/28/19 14:02 Iodine (Iodine 2% Mild Tincture) Confirm Administered Dose 30 ml .ROUTE .[facility]- MED ONE Stop: 04/28/19 09:04 Last Admin: 04/28/19 11:35 Dose: 18 ml Lidocaine/Sodium Bicarbonate (Buffered Lidocaine 1% In Ns 8.4%) 0.25 ml IDERM ONETIME PRN PRN Reason: Prior to IV Start Stop: 04/28/19 18:00 Last Admin: 04/28/19 08:30 Dose: 0.25 ml Midazolam HCl (Versed 1 Mg/Ml) Confirm Administered Dose 2 mg .ROUTE .STK-MED ONE Stop: 04/28/19 08:33 Ondansetron HCl (Zofran) 4 mg IVPUSH ONETIME PRN PRN Reason: Nausea/Vomiting Stop: 04/28/19 12:00 Ondansetron HCl (Zofran) Confirm Administered Dose 4 mg .ROUTE .STK-MED ONE Stop: 04/28/19 10:34 Oxycodone HCl (Oxycontin) 10 mg PO ONETIME [facility] Stop: 04/28/19 12:00 Last Admin: 04/28/19 08:35 Dose: 10 mg Phenylephrine HCl (Phenylephrine In Ns 100 Mcg/Ml) Confirm Administered Dose 1 mg .ROUTE .STK-MED ONE Stop: 04/28/19 10:45 Pregabalin (Lyrica) 50 mg PO ONETIME [facility] Stop: 04/28/19 12:00 Last Admin: 04/28/19 08:35 Dose: 50 mg Propofol (Diprivan 20 Ml) Confirm Administered Dose 200 mg .ROUTE .STK-MED ONE Stop: 04/28/19 08:33 Propofol (Diprivan 20 Ml) Confirm Administered Dose 200 mg .ROUTE .STK-MED ONE Stop: 04/28/19 10:46 Propofol (Diprivan 20 Ml) Confirm Administered Dose 200 mg .ROUTE .STK-MED ONE Stop: 04/28/19 11:13 Tranexamic Acid (Cyklokapron) Confirm Administered Dose 1,000 mg .ROUTE .STK- MED ONE Stop: 04/28/19 09:04 Last Admin: 04/28/19 11:45 Dose: 1,000 mg Vancomycin HCl (Vancomycin) Confirm Administered Dose 1 gm .ROUTE .STK-MED ONE Stop: 04/28/19 09:04 Last Admin: 04/28/19 11:45 Dose: 1 gm
[2019-04-30] MEDS ORDERED: Folic Acid 1 MG Tab PO SCH (09:00)
[2019-04-30] MEDS: Cholecalciferol (Vitamin D3) 1,000 Unit Tab PO SCH (09:16)
[2019-04-30] MEDS: Aspirin 325 MG Tab.EC PO SCH (09:17)
[2019-04-30] MEDS: Docusate Sodium 100 MG Cap PO SCH (09:17)
[2019-04-30] MEDS: FLUoxetine 10 MG Cap PO SCH (09:17)
[2019-04-30] MEDS: Montelukast 10 MG Tab PO SCH (09:17)
[2019-04-30] MEDS: Multivitamins,Therapeutic Tab PO SCH (09:17)
--- NOTE | 2019-04-30 09:32 | CR ---
Chest: Two views of the chest were obtained. Comparison: Prior chest x-ray of 04/09/[address] of 07/05/09. 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 Stable blunting of the lateral left costophrenic angle is seen. Minimal scarring is seen within the left base. No acute parenchymal change is seen within the chest. Diaphragms are slightly flattened suggesting emphysematous change. Scattered degenerative disc space narrowing and spurring is seen within the spine. Impression: 1. Stable findings as noted above. Nothing acute is appreciated. Diagnostic code #2
--- NOTE | 2019-05-02 12:16 | OR ---
DATE OF OPERATION: 04/28/2019 SURGEON: Axel Williamson MD OPERATION PERFORMED: Right total hip arthroplasty. PREOPERATIVE DIAGNOSIS: Right hip osteoarthrosis. POSTOPERATIVE DIAGNOSIS: Right hip osteoarthrosis. ANESTHESIA: Local MAC with spinal. ANESTHESIA PROVIDER: Nyla Shah CRNA. ASSISTANTS: Juhi Li PA-C, and Vane Powell LPN. ESTIMATED BLOOD LOSS: 1000 mL. COMPLICATION: None. CONDITION: Stable. IMPLANTS: 1. French size 52 mm solid Tritanium acetabular cup. 2. [place] size 36 mm flat polyethylene liner. 3. French size 6 Accolade II stem. 4. French size 36 mm Biolox femoral head +0. DESCRIPTION OF PROCEDURE: Patient was identified in the preop holding area, where proper site was marked and identified by the surgeon. The patient was taken back to the operating theater, where after adequate anesthesia, the patient was placed in the left lateral decubitus position. Axillary roll was placed. All bony prominences well padded. Pegs were then placed and well padded. The patient's gluteal fold was parallel to the floor. At this time, the right hip was then sterilely prepped and draped in the usual sterile fashion. OR time-out was performed. The patient received 2 g IV Ancef. At this time, a standard posterior incision was made centered over the greater trochanter. This was taken down to the IT band and gluteal fascia, which was incised along the incisional length. Charnley retractor was then placed. The short external rotators were identified and takedown of the short external rotators as well as capsulotomy was performed from the level of the piriformis down to the lesser trochanter. The hip was then dislocated. Neck cut was then completed. Attention was turned to the acetabulum. Anterior and posterior acetabular retractors were placed. The remaining labrum was removed as well as the pulvinar. Starting with a 46 reamer, I was able to ream up to a 52 which was found to have good purchase. A 52 mm Titanium II acetabular cup was impacted in place in roughly 30 degrees of anteversion and 45 degrees of abduction. The 36 mm flat liner was then impacted in place. Attention was turned to the femur. Starting with a box chisel out laterally, starter awl was placed down the canal. Starting with the 0 broach, I was able to broach up to a size 6 which was found to be rotationally and vertically stable. A 127 degree trial neck was placed along with 36+ 0 and was found to have adequate spiritism of leg lengths and was stable throughout range of motion. The size 6 Accolade II stem was then impacted into place after the trial components were removed and a 36 +0 head was impacted in place. The hip was then relocated, and #5 Ethibond suture was used for closure of the capsule and short external rotators. 1 L dilute Betadine solution was irrigated through the hip along with 3 L of pulse lavage irrigation with Ancef. Topical tranexamic acid as well as vancomycin powder was placed. Periarticular injection was then completed. A #2 barbed suture was used for closure of the IT band and gluteal fascia, 2-0 Vicryl was used subcutaneously, and Prineo was used for the skin. The patient had a sterile soft dressing applied and sent to PACU in stable condition. HANNAH /[id number]
== END 2019-04-30 10:27 | disposition home or self-care (01) | DRG 470 ==
LOC: JD.MS 07:55
PROVIDERS: ADMIT Orthopaedic Surgery; ATTEND Orthopaedic Surgery
PROC: 0SR904Z Replacement of Right Hip Joint with Ceramic on Polyethylene Synthetic Substitute, Open Approach (ICD-10-PCS; principal; 2019-04-28)
DX: M16.11 Unilateral primary osteoarthritis, right hip (principal); E66.3 Overweight; K21.9 Gastro-esophageal reflux disease without esophagitis; I10 Essential (primary) hypertension; E78.00 Pure hypercholesterolemia, unspecified; M81.0 Age-related osteoporosis without current pathological fracture; Z96.1 Presence of intraocular lens; M54.12 Radiculopathy, cervical region; R09.02 Hypoxemia; F32.9 Major depressive disorder, single episode, unspecified; Z68.32 Body mass index [BMI] 32.0-32.9, adult; Z79.899 Other long term (current) drug therapy; Z79.82 Long term (current) use of aspirin; Z85.51 Personal history of malignant neoplasm of bladder; Z98.49 Cataract extraction status, unspecified eye
CPT/HCPCS: 01214; 36415; 71046; 71046-26; 73501-26-RT; 73501-RT; 80048; 80053; 83735; 85014; 85018; 85025; 85027; 86850; 86900; 86901; 87641; 94640; 94760; 94761; 97110-GP; 97116-GP; 97161-GP; 97165-GO; 97530-GP; 97535-GO; A9270-GY; C1776; J0171; J0690; J0697; J1885; J2001; J2250; J2270; J2370; J2405; J2704; J3370; J3490; J7050; J7120

== ENCOUNTER 2021-03-08 06:48 | Day surgery (SDC) | payer MEDICARE, BC ==
--- NOTE | 2021-03-07 11:05 | PCM.PREANE ---
Preanesthetic Assessment - Procedure Proposed Procedure: Screening Colonoscopy - Anesthesia/Transfusion/Family Hx Anesthesia History: Prior Anesthesia Without Reaction Family History of Anesthesia Reaction: No Transfusion History: No Prior Transfusion(s) Intubation History: Unknown - Review of Systems General: No Symptoms Pulmonary: No Symptoms (ETOH: 1 drink/day(wine), Former smoker: quit 30-40 years ago.) Cardiovascular: No Symptoms (High Cholesterol, HTN) Gastrointestinal: No Symptoms (GERD) Neurological: No Symptoms (lower back pain: today 0/10) Other: Reports: Neck Pain (cervical radicular pain), Depression - Physical Assessment NPO Status Date: 03/07/21 NPO Status Time: 18:00 Vital Signs: HR:92 Sat:96% Temp:98.4 Resp:18 B/P:127/80 Height: 1.55 m Weight: 79 kg ASA Class: 3 Mental Status: Alert & Oriented x3 Airway Class: Mallampati = 2 Dentition: Reports: Normal Dentition, [place](s) Thyro-Mental Finger Breadths: 3 Mouth Opening Finger Breadths: 3 ROM/Head Extension: Full Lungs: Clear to Auscultation, Normal Respiratory Effort Cardiovascular: Regular Rate, Regular Rhythm, No Murmurs - Lab Values: All labs reviewed and noted and within acceptable ranges to proceed with scheduled procedure. - Imaging/EKG Impressions: EKG: SR rate=71, borderline Twave abnormalities anterior leads - Allergies Allergies/Adverse Reactions: Allergies Allergy/AdvReac Type Severity Reaction Status Date / Time No Known Allergies Allergy Verified 03/07/21 13:27 - Anesthesia Plan Pre-Op Medication Ordered: None - Acknowledgements Anesthesia Type Planned: MAC Pt an Appropriate Candidate for the Planned Anesthesia: Yes Alternatives and Risks of Anesthesia Discussed w Pt/Guardian: Yes Pt/Guardian Understands and Agrees with Anesthesia Plan: Yes PreAnesthesia Questionnaire HEENT History: Reports: Epistaxis, Other (See Below) Other HEENT History: mouth ulcer, wears glasses Cardiovascular History: Reports: High Cholesterol, Hypertension Respiratory History: Reports: Other (See Below) Other Respiratory History: cough Gastrointestinal History: Reports: GERD, Hemorrhoids Genitourinary History: Reports: Other (See Below) Other Genitourinary History: urgency NURSING ASSOCIATE History: Reports: None Musculoskeletal History: Reports: Arthritis, Osteoporosis Other Musculoskeletal History: right shoulder pain Neurological History: Reports: Other (See Below) Other Neuro History: cervical radicular pain Psychiatric History: Reports: Depression Endocrine/Metabolic History: Reports: None Hematologic History: Reports: None Immunologic History: Reports: None Oncologic (Cancer) History: Reports: Bladder Dermatologic History: Reports: Other (See Below) Other Dermatologic History: actinic keratosis, atypica pigmented skin lesion, common wart, seborrheic keratosis, verruca vulgaris - Infectious Disease History Infectious Disease History: Reports: Chicken Pox, Measles, Mumps, Shingles - Past Surgical History Head Surgeries/Procedures: Reports: None HEENT Surgical History: Reports: Cataract Surgery Cardiovascular Surgical History: Reports: None Respiratory Surgical History: Reports: None GI Surgical History: Reports: Colonoscopy Female Surgical History: Reports: Other (See Below) Other Female Surgeries/Procedures: bladder surgery x2, 2 cancerous areas removed Endocrine Surgical History: Reports: None Musculoskeletal Surgical History: Reports: None Oncologic Surgical History: Reports: None Dermatological Surgical History: Reports: None - HOME MEDS Home Medications: Home Meds Cholecalciferol (Vitamin D3) [Vitamin D3] 2,000 unit PO DAILY 04/25/19 [History] FLUoxetine [PROzac] 10 mg PO DAILY 04/25/19 [History] Montelukast [Singulair] 10 mg PO DAILY 04/25/19 [History] Multivitamin [Daily Multiple Vitamin] 1 tab PO DAILY 04/25/19 [History] Pantoprazole Sodium 40 mg PO DAILY 04/25/19 [History] Ubidecarenone [Coq-10] 100 mg PO DAILY 04/25/19 [History] Aspirin [Larissa Chewable Aspirin] 81 mg PO DAILY 03/07/21 [History] amLODIPine [Norvasc] 5 mg PO DAILY 03/07/21 [History] atorvaSTATin Calcium [Lipitor] 20 mg PO DAILY 03/07/21 [History] - CURRENT (IN HOUSE) MEDS Current Meds: Current Medications Lactated Ringer's (Ringers, Lactated) 1,000 mls @ 125 mls/hr IV ASDIRECTED AMI Stop: 03/08/21 23:00 Lidocaine/Sodium Bicarbonate (Lidocaine 1%/Sod Bicarbonate In Ns 8.4% 1 Ml Syringe) 0.25 ml IDERM ONETIME PRN PRN Reason: Prior to IV Start Stop: 03/08/21 18:00 Sodium Chloride (Sodium Chloride 0.9% 10 Ml Syringe) 10 ml FLUSH ASDIRECTED PRN PRN Reason: Keep Vein Open Stop: 03/08/21 18:00
[~2021-03-08 06:48] MED LIST changes: -Acetaminophen 325 MG Tab PO SCH; -Ketorolac 15 MG/ML SDV IVPUSH PRN; -Morphine 2 MG/ML Syringe IVPUSH PRN; -Naloxone 0.4 MG/ML SDV IVPUSH PRN; -Ondansetron 4 MG/2 ML SDV IVPUSH PRN; -Pregabalin 25 MG Cap PO SCH; -oxyCODONE ER 10 MG TAB.ER PO SCH
[2021-03-08] MEDS ORDERED: fentaNYL 100 MCG/2 ML SDV ONE (07:12)
[2021-03-08] MEDS ORDERED: Propofol 200 MG/20 ML SDV ONE (07:12)
[2021-03-08] MEDS ORDERED: Lidocaine 1% 4 ML ONE (07:12)
--- NOTE | 2021-03-08 08:28 | PCM48HPAN ---
Post Anesthesia Note - EVALUATION WITHIN 48HRS OF ANESTHETIC Vital Signs in Normal Range: Yes Patient Participated in Evaluation: Yes Respiratory Function Stable: Yes Airway Patent: Yes Cardiovascular Function Stable: Yes Hydration Status Stable: Yes Pain Control Satisfactory: Yes Nausea and Vomiting Control Satisfactory: Yes Mental Status Recovered: Yes Vital Signs: Last Vital Signs Temp 36.9 C 03/08/21 07:20 Pulse 92 03/08/21 07:20 Resp 18 03/08/21 07:20 BP 127/80 03/08/21 07:20 Pulse Ox 96 03/08/21 07:20
--- NOTE | 2021-03-08 08:31 | PCM.PRNOTE ---
- Free Text/Narrative Note: Date: 03/08/2021 Procedure: diagnostic colonoscopy Indication: painless rectal bleeding Endoscopist: Edward Reaves MD Findings: external hemorrhoid. Diverticulosis. There appeared to be some mucosal trauma (multiple small superficial linear tears) near the cecum with associated fresh blood, not believed to be due to scope trauma. Detailed Report: The patient was taken to the endoscopy suite and placed in left lateral decubitus position. Timeout was performed and monitored anesthesia care was initiated. Visual inspection of the anus revealed an external hemorrhoid anteriorly. Digital rectal exam was unremarkable. The colonoscope was inserted and advanced to the cecum. This was difficult due to redundancy of the colon. On entry into the cecum, the appendiceal orifice was visualized. Prep was good. Within the cecum, multiple superficial linear tears in the mucosa were noted with minimal bright red blood associated. I do not believe this is from scope trauma as the injuries were noted prior to traversing this region of the colon with the scope. It seemed like it might be due to something like cecal volvulus. The scope was slowly withdrawn and mucosal surfaces carefully inspected. No polyps were identified. There were no worrisome lesions to suggest malignancy. No significant internal hemorrhoidal disease was appreciated on retroflexion of the scope. Air was suctioned from the rectum prior to withdrawal of the scope. The patient tolerated the procedure well.
== END 2021-03-08 09:11 | disposition home or self-care (01) ==
LOC: JD.SDS 06:48
PROVIDERS: ATTEND Surgery
DX: K57.31 Diverticulosis of large intestine without perforation or abscess with bleeding (principal); K64.4 Residual hemorrhoidal skin tags; K63.89 Other specified diseases of intestine; Z80.0 Family history of malignant neoplasm of digestive organs; M81.0 Age-related osteoporosis without current pathological fracture; K21.9 Gastro-esophageal reflux disease without esophagitis; I10 Essential (primary) hypertension; E78.00 Pure hypercholesterolemia, unspecified; Z79.899 Other long term (current) drug therapy; Z98.890 Other specified postprocedural states; Z79.82 Long term (current) use of aspirin; Z87.891 Personal history of nicotine dependence
CPT/HCPCS: 45378; J2704; J3010; J7120; 00812; 99100

== ENCOUNTER 2023-05-23 07:53 | Day surgery (SDC) | payer MEDICARE, BC ==
[~2023-05-23 07:53] MED LIST changes: -Lidocaine 1%/Sod Bicarbonate in NS 8.4% 1 ML Syringe IDERM PRN; +Sodium Chloride 0.9% 10 ML Syringe FLUSH SCH
[2023-05-23] MEDS ORDERED: EPINEPHrine 1 MG/ML SDV ONE (09:21)
[2023-05-23] MEDS ORDERED: Ropivacaine 0.5% 5 MG/ML 30 ML SDV ONE (09:21)
[2023-05-23] MEDS ORDERED: Rocuronium 50 MG/5 ML Vial ONE (09:22)
[2023-05-23] MEDS ORDERED: Propofol 200 MG/20 ML SDV ONE (09:22)
[2023-05-23] MEDS ORDERED: Lidocaine 1% 2 ML ONE (09:22)
[2023-05-23] MEDS ORDERED: fentaNYL 100 MCG/2 ML SDV ONE (09:23)
[2023-05-23] MEDS ORDERED: Midazolam 1 MG/ML 2 ML SDV ONE (09:23)
[2023-05-23] MEDS ORDERED: Tranexamic Acid 1,000 MG/10 ML Vial ONE ×2 (09:39→11:06)
[2023-05-23] MEDS ORDERED: Vancomycin 1 GM SDV ONE ×2 (09:39→11:06)
[2023-05-23] MEDS ORDERED: HYDROmorphone 0.5 MG/0.5 ML Syringe IVPUSH PRN (09:51)
[2023-05-23] MEDS ORDERED: fentaNYL 100 MCG/2 ML SDV IVPUSH PRN (09:51)
[2023-05-23] MEDS ORDERED: Ondansetron 4 MG/2 ML SDV IVPUSH PRN (09:51)
[2023-05-23] MEDS ORDERED: ceFAZolin 2 GM Vial ONE (11:53)
[2023-05-23] MEDS ORDERED: Lactated Ringers 1,000 ML IV ONE (12:00)
[2023-05-23] MEDS ORDERED: Phenylephrine 1% 10 MG/ML SDV ONE (12:00)
[2023-05-23] MEDS ORDERED: Ondansetron 4 MG/2 ML SDV ONE (12:02)
[2023-05-23] MEDS ORDERED: Dexamethasone 4 MG/ML 5 ML MDV ONE (12:02)
[2023-05-23] MEDS ORDERED: Neostigmine Methylsulfate 10 MG/10 ML MDV ONE (12:47)
== END 2023-05-23 15:35 | disposition home or self-care (01) ==
LOC: JD.SDS 07:53
PROVIDERS: ATTEND Orthopaedic Surgery
DX: M19.012 Primary osteoarthritis, left shoulder (principal); I10 Essential (primary) hypertension; E78.00 Pure hypercholesterolemia, unspecified; K21.9 Gastro-esophageal reflux disease without esophagitis; M81.0 Age-related osteoporosis without current pathological fracture; F33.1 Major depressive disorder, recurrent, moderate; E04.1 Nontoxic single thyroid nodule; Z79.899 Other long term (current) drug therapy; Z79.82 Long term (current) use of aspirin; Z88.8 Allergy status to other drugs, medicaments and biological substances; Z98.890 Other specified postprocedural states; Z87.891 Personal history of nicotine dependence
CPT/HCPCS: 23472; 64415; 76000; 97110; 97161; C1713; C1769; C1776; J0171; J0690; J1100; J2250; J2370; J2405; J2704; J2710; J2795; J3010; J3370; J7120; 01638; 99100; J3490

== ENCOUNTER 2023-05-27 17:20 | Emergency (ER) | payer MEDICARE, BC | END 2023-05-27 18:11 | disposition home or self-care (01) | LOC: JD.ED 17:20 | DX: L76.22 Postprocedural hemorrhage of skin and subcutaneous tissue following other procedure (principal); E78.00 Pure hypercholesterolemia, unspecified; I10 Essential (primary) hypertension; K21.9 Gastro-esophageal reflux disease without esophagitis; M19.90 Unspecified osteoarthritis, unspecified site; Z79.899 Other long term (current) drug therapy; Z79.82 Long term (current) use of aspirin; Z96.612 Presence of left artificial shoulder joint | CPT/HCPCS: 99283 ==

== ENCOUNTER 2024-04-12 15:18 | Emergency (ER) | payer MEDICARE, BC | END 2024-04-12 17:15 | disposition left against medical advice (07) | LOC: JD.ED 15:18 | DX: Z53.21 Procedure and treatment not carried out due to patient leaving prior to being seen by health care provider (principal) ==

== ENCOUNTER 2025-09-05 09:00 | Emergency (ER) | payer MEDICARE, BC | END 2025-09-05 09:48 | disposition home or self-care (01) | LOC: JD.ED 09:00 | DX: M70.812 Other soft tissue disorders related to use, overuse and pressure, left shoulder (principal); I10 Essential (primary) hypertension; E78.00 Pure hypercholesterolemia, unspecified; K21.9 Gastro-esophageal reflux disease without esophagitis; Z87.891 Personal history of nicotine dependence; Z79.82 Long term (current) use of aspirin; Z79.899 Other long term (current) drug therapy | CPT/HCPCS: 73030-26-LT; 73030-LT; 99283 ==

== ENCOUNTER 2025-09-06 00:47 | Emergency (ER) | payer MEDICARE, BC ==
[2025-09-06 01:44] LABS: BASOPHILS ABSOLUTE AUTO 0.0 K/mm3 (0.0-0.2); BASOPHILS PERCENT AUTO 0.5 % (0.0-1.0); EOSINOPHILS ABSOLUTE AUTO 0.1 K/mm3 (0.0-0.4); EOSINOPHILS PERCENT AUTO 0.8 % (0.0-6.0); IMMATURE GRAN ABSOLUTE AUTO 0.04 K/mm3 (0.00-0.05); IMMATURE GRAN PERCENT AUTO 0.7 % (0.0-0.4); LYMPHOCYTES ABSOLUTE AUTO 1.8 K/mm3 (1.0-4.8); LYMPHOCYTES PERCENT AUTO 29.5 % (24.0-44.0); MEAN PLATELET VOLUME 9.8 fl (9.4-12.3); MONOCYTES ABSOLUTE AUTO 0.6 K/mm3 (0.0-0.8); MONOCYTES PERCENT AUTO 9.5 % (0.0-8.0); NEUTROPHILS ABSOLUTE AUTO 3.5 K/mm3 (1.8-7.7); NEUTROPHILS PERCENT AUTO 59.0 % (41.0-71.0); NRBC ABSOLUTE 0.00 (0.00-0.02); NRBC PERCENT 0.0 % (0.0-0.2); PLATELET COUNT,PLT 316 K/mm3 (150-400); RED BLOOD CELL COUNT 4.63 M/mm3 (4.10-5.30); WHITE BLOOD CELL COUNT,WBC 5.99 K/mm3 (3.9-11.3)
[2025-09-06 01:56] LABS: A/G RATIO 1.0 (1-2); ALANINE AMINOTRANSFERASE,ALT 26.0 U/L (14-59); ASPARTATE AMNIOTRANSFERASE,AST 17.0 U/L (15-37); BILIRUBIN TOTAL 0.5 mg/dL (0.2-1.0); BLOOD UREA NITROGEN,BUN 22.0 mg/dL (7-18); CARBON DIOXIDE,CO2 28.0 mEq/L (21-32); CHLORIDE,CL 104.0 mEq/L (98-107); CREATININE 1.1 mg/dL (0.55-1.02); EST CRCL DRUG DOSING (CG) 27.19 mL/min; ESTIMATED GFR 49.0 mL/min (>60); GLUCOSE RANDOM 102.0 mg/dL (70-99); POTASSIUM,K 4.1 mEq/L (3.5-5.1); PROTEIN TOTAL,TP 7.2 g/dl (6.4-8.2); SODIUM,NA 139.0 mEq/L (136-145); TROPONIN I HIGH SENSITIVITY 9.0 pg/mL (<=51)
== END 2025-09-06 03:30 | disposition home or self-care (01) ==
LOC: JD.ED 00:47
DX: M25.512 Pain in left shoulder (principal); I10 Essential (primary) hypertension; E78.00 Pure hypercholesterolemia, unspecified; K21.9 Gastro-esophageal reflux disease without esophagitis; Z86.16 Personal history of COVID-19; Z79.82 Long term (current) use of aspirin; Z79.899 Other long term (current) drug therapy
CPT/HCPCS: 36415; 71045; 71045-26; 73060-26-LT; 73060-LT; 80053; 84484; 85025; 93005; 99284

== ENCOUNTER 2025-09-06 21:38 | Emergency (ER) | payer MEDICARE, BC ==
[2025-09-06 22:18] LABS: BASOPHILS ABSOLUTE AUTO 0.0 K/mm3 (0.0-0.2); BASOPHILS PERCENT AUTO 0.3 % (0.0-1.0); EOSINOPHILS ABSOLUTE AUTO 0.1 K/mm3 (0.0-0.4); EOSINOPHILS PERCENT AUTO 1.2 % (0.0-6.0); IMMATURE GRAN ABSOLUTE AUTO 0.03 K/mm3 (0.00-0.05); IMMATURE GRAN PERCENT AUTO 0.5 % (0.0-0.4); LYMPHOCYTES ABSOLUTE AUTO 1.6 K/mm3 (1.0-4.8); LYMPHOCYTES PERCENT AUTO 27.1 % (24.0-44.0); MEAN PLATELET VOLUME 9.4 fl (9.4-12.3); MONOCYTES ABSOLUTE AUTO 0.6 K/mm3 (0.0-0.8); MONOCYTES PERCENT AUTO 9.4 % (0.0-8.0); NEUTROPHILS ABSOLUTE AUTO 3.7 K/mm3 (1.8-7.7); NEUTROPHILS PERCENT AUTO 61.5 % (41.0-71.0); NRBC ABSOLUTE 0.00 (0.00-0.02); NRBC PERCENT 0.0 % (0.0-0.2); PLATELET COUNT,PLT 295 K/mm3 (150-400); RED BLOOD CELL COUNT 4.51 M/mm3 (4.10-5.30); WHITE BLOOD CELL COUNT,WBC 5.97 K/mm3 (3.9-11.3)
[2025-09-06 22:41] LABS: A/G RATIO 1.1 (1-2); ALANINE AMINOTRANSFERASE,ALT 25.0 U/L (14-59); ASPARTATE AMNIOTRANSFERASE,AST 19.0 U/L (15-37); BILIRUBIN TOTAL 0.5 mg/dL (0.2-1.0); BLOOD UREA NITROGEN,BUN 28.0 mg/dL (7-18); CARBON DIOXIDE,CO2 27.0 mEq/L (21-32); CHLORIDE,CL 103.0 mEq/L (98-107); CREATININE 1.1 mg/dL (0.55-1.02); EST CRCL DRUG DOSING (CG) 27.19 mL/min; ESTIMATED GFR 49.0 mL/min (>60); GLUCOSE RANDOM 112.0 mg/dL (70-99); POTASSIUM,K 4.1 mEq/L (3.5-5.1); PROTEIN TOTAL,TP 7.1 g/dl (6.4-8.2); SODIUM,NA 139.0 mEq/L (136-145); TROPONIN I HIGH SENSITIVITY 8.0 pg/mL (<=51)
[2025-09-07] MEDS: Ketorolac 30 MG/ML SDV IM ONE (00:01)
== END 2025-09-07 00:32 | disposition home or self-care (01) ==
LOC: JD.ED 21:38
DX: M25.512 Pain in left shoulder (principal); I10 Essential (primary) hypertension; E78.00 Pure hypercholesterolemia, unspecified; K21.9 Gastro-esophageal reflux disease without esophagitis; Z86.16 Personal history of COVID-19; Z79.82 Long term (current) use of aspirin; Z79.899 Other long term (current) drug therapy
CPT/HCPCS: 36415; 71045; 71045-26; 73060-26-LT; 73060-LT; 73200-26-LT; 73200-LT; 80053; 84484; 85025; 93005; 96372; 99284; J1885

== ENCOUNTER 2025-09-08 05:27 | Emergency (ER) | payer MEDICARE, BC ==
[2025-09-08 05:56] LABS: BASOPHILS ABSOLUTE AUTO 0.0 K/mm3 (0.0-0.2); BASOPHILS PERCENT AUTO 0.5 % (0.0-1.0); EOSINOPHILS ABSOLUTE AUTO 0.1 K/mm3 (0.0-0.4); EOSINOPHILS PERCENT AUTO 0.8 % (0.0-6.0); IMMATURE GRAN ABSOLUTE AUTO 0.03 K/mm3 (0.00-0.05); IMMATURE GRAN PERCENT AUTO 0.4 % (0.0-0.4); LYMPHOCYTES ABSOLUTE AUTO 1.9 K/mm3 (1.0-4.8); LYMPHOCYTES PERCENT AUTO 25.5 % (24.0-44.0); MEAN PLATELET VOLUME 9.5 fl (9.4-12.3); MONOCYTES ABSOLUTE AUTO 0.6 K/mm3 (0.0-0.8); MONOCYTES PERCENT AUTO 8.2 % (0.0-8.0); NEUTROPHILS ABSOLUTE AUTO 4.8 K/mm3 (1.8-7.7); NEUTROPHILS PERCENT AUTO 64.6 % (41.0-71.0); NRBC ABSOLUTE 0.00 (0.00-0.02); NRBC PERCENT 0.0 % (0.0-0.2); PLATELET COUNT,PLT 336 K/mm3 (150-400); RED BLOOD CELL COUNT 4.66 M/mm3 (4.10-5.30); WHITE BLOOD CELL COUNT,WBC 7.48 K/mm3 (3.9-11.3)
[2025-09-08] MEDS ORDERED: Sodium Chloride 0.9% 10 ML Syringe FLUSH PRN (06:01)
[2025-09-08 06:15] LABS: A/G RATIO 1.1 (1-2); ALANINE AMINOTRANSFERASE,ALT 26.0 U/L (14-59); ASPARTATE AMNIOTRANSFERASE,AST 18.0 U/L (15-37); BILIRUBIN TOTAL 0.7 mg/dL (0.2-1.0); BLOOD UREA NITROGEN,BUN 25.0 mg/dL (7-18); CARBON DIOXIDE,CO2 27.0 mEq/L (21-32); CHLORIDE,CL 100.0 mEq/L (98-107); CREATININE 1.0 mg/dL (0.55-1.02); EST CRCL DRUG DOSING (CG) 29.91 mL/min; ESTIMATED GFR 55.0 mL/min (>60); GLUCOSE RANDOM 102.0 mg/dL (70-99); POTASSIUM,K 4.2 mEq/L (3.5-5.1); PROTEIN TOTAL,TP 7.3 g/dl (6.4-8.2); SODIUM,NA 136.0 mEq/L (136-145); TROPONIN I HIGH SENSITIVITY 7.0 pg/mL (<=51)
[2025-09-08] MEDS: Iopamidol 755 Mg/ML 100 ML Bottle IVPUSH ONE (06:25)
[2025-09-08 07:47] LABS: APPEARANCE,URINE CLEAR (Clear); GLUCOSE,URINE NEGATIVE (Negative); OCCULT BLOOD,URINE NEGATIVE (Negative)
[2025-09-08 08:19] LABS: SQUAMOUS EPITHELIAL CELLS,UR 0-5 /hpf (0-5)
== END 2025-09-08 09:39 | disposition home or self-care (01) ==
LOC: JD.ED 05:27
DX: R07.89 Other chest pain (principal); N30.00 Acute cystitis without hematuria; Z79.899 Other long term (current) drug therapy; Z79.82 Long term (current) use of aspirin
CPT/HCPCS: 36415; 71275; 71275-26; 80053; 81001; 83690; 83735; 84484; 85025; 87086; 93005; 99285; J7030; Q9967